=== PATIENT | male | born 1940 | race Caucasian/White ===

== ENCOUNTER 2022-10-22 08:42 | Emergency (ER) | payer OTHER ==
--- OUTSIDE RECORDS SUMMARY | 2022-10-22 08:49 | XMS REPORT | Continuity of Care Document ---
:1940 Author Organization [facility] t Address [address] [facility] [address] [place] [address] Care Team Providers Name Role Phone Angel Sykes MD Primary Care Physician SOLOMON LEYVA Attending Clinician Unavailable Ana Paula Lopez MD Attending Clinician Alexus Hardy Attending Clinician Solomon Leyva MD Attending Clinician Only, Adc Test Attending Clinician Unavailable Doctor Unassigned, [place] Attending Clinician Unavailable Pob, [facility] Lab Main Attending Clinician Unavailable SOLOMON LEYVA Admitting Clinician Unavailable Solomon Leyva MD Admitting Clinician Payers Payer Name Policy Type Policy Number Effective Date Expiration Date S chang [employer] MEDICARE ADV [id number] 2016 00:00:00 Problems Condition Condition Condition Status Onset Resolution Last Treating Co mments Source Name Details Category Date Date Treatment Clinician Date History of History of Disease Active M ethodi coronary coronary 05-08 st artery artery 00:00: Hospita stent stent 00 l placement placement Essential Essential Disease Active Met hodi hypertensi hypertensi 05-07 on on 00:00: Hospita 00 l Hyperlipid Hyperlipid Disease Active 2019- M ethodi emia emia 05-07 00:00: Hospita 00 l DM DM Disease Active Methodi (diabetes (diabetes 05-07 mellitus) mellitus) 00:00: Hosp lizzie 00 l Stented Stented Disease Active [facility] coronary coronary 6-04 st artery artery 00:00: Hospita 00 l Benign Benign Disease Active [facility] localized localized 4-30 st hyperplasi hyperplasi 00:00: Ho spita a of a of 00 l prostate prostate with with urinary urinary obstructio obstructio n n BPH with BPH with Disease Recurre Meth la obstructio obstructio nce 2-25 st n/lower n/lower 00:00: Hospita urinary urinary 00 l tract tract symptoms symptoms Bladder Bladder Disease Recurre Method i stones stones nce 2-25 st 00:00: Hospita 00 l 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 1-24 st ce of ce of 00:00: Hospita urine urine 00 l 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 7-11 st disease disease 00:00: Hospita involving involving 00 l lower brule lower brule heart with heart with angina angina pectoris pectoris Closed Closed Disease Active Method[facility] fracture fracture 5-09 st of shaft of shaft 00:00: Hospit a of right of right 00 l femur femur 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 00:00: Ho spita 00 l 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 5-01 st internal internal 00:00: Hospit a hip 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 l prosthesis prosthesis Hip mass Hip mass Disease Active Metho di 4-20 st 00:00: Hospita 00 l Pain of Pain of Disease Active Method[facility] lumbar lumbar 2-27 st spine spine 00:00: Hospita 00 l Coronary Coronary Disease Active 2015-08 Metho di artery artery 2-01 st disease disease 00:00: Hospita involving involving 00 l lower brule lower brule coronary coronary artery artery without without angina angina pectoris pectoris Benign Benign Problem Active 2022-03-24 Dutch amari prostatic prostatic 21:26:29 l hyperplasi hyperplasi He rmann a a (disorder) (disorder) Active Problem 03/24/2022 [facility] Kidney Kidney Problem Active 2022-03-24 Dutch amari stone stone 21:26:29 l (disorder) (disorder) He rmann Active Problem 03/24/2022 [facility] Group Overactive Problem Active 2022-03-24 M emoria bladder Overactive 21:26:29 l bladder Dema Active Problem 03/24/2022 [facility] Group N20.0 - N20.0 - Diagnosis Active 2021-08-12 Memoria 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 l s to Hard to drug wake up when pt is given morphine. Codeine Propensi Active Nausea Methodi ty to 4-[address] adverse 00:00: vomiting. Hospit a reaction 00 l s to drug Hydrocod Propensi Active Nausea Method i one ty to 4-[address] adverse 00:00: vomiting. Hospit a reaction 00 l s to drug CODEINE DRUG Active N/V [facility]GREDI 2-23 [facility] [place] [facility] MEPERIDI DRUG Active N/V Univers NE HCL INGREDI 2-23 ity of 00:00: [place] [facility] HYDROCOD DRUG Active N/V Univers ONE INGREDI 2-23 ity of 00:00: [place] [facility] MORPHINE DRUG Active N/V Univers INGREDI 2-23 ity of 00:00: [place] [facility] HYDROCOD DRUG Active N/V Univers ONE-ACET 2-23 ity of AMINOPHE 00:00: [place] N 00 [facility] Codeine Propensi Active Nausea Univers ty to and/or 2-23 ity of adverse Vomiting 00:00: [place] reaction 00 [facility] s [facility] Meperidi Propensi Active Nausea Univer s ne Hcl ty to and/or 2-23 ity of adverse Vomiting 00:00: [place] reaction 00 [facility] Hydrocod Propensi Active Nausea Univer s one ty to and/or 2-23 ity of adverse Vomiting 00:00: [place] reaction 00 [facility] Morphine Propensi Active Nausea 2017 Univer s ty to and/or 2-23 ity of adverse Vomiting 00:00: [place] reaction 00 [facility] Hydrocod Propensi Active Nausea 2017 Univer s one-Acet ty to and/or 2- ity of aminophe adverse Vomiting 00:00: [place] n reaction 00 [facility] codeine codeine Active Memoria l Dema morphine morphine Active Memori a l [place] Demerol Demerol Active Memoria l [place] Meperidi Propensi Active Nausea / Meth la ne ty to vomiting st adverse Hospita reaction l s to drug Social History Social Habit Start Date Stop Date Quantity Comments Source History of tobacco Cigarette Smoker [facility] Exposure to Not sure [facility] SARS-CoV-2 (event) [facility] Tobacco use and 2020-11-24 2020-11-24 Never used Univers y of exposure 00:00:00 00:00:00 [facility] Alcohol intake 2019-05-07 2019-05-07 Current drinker Metho dist 00:00:00 00:00:00 of alcohol Hospital (finding) Cigarettes smoked 2017-09-30 2017-09-[address] current (pack per 00:00:00 00:00:00 Hospita l day) - Reported Cigarette 2017-09-30 2017-09-30 [facility] pack-years 00:00:00 00:00:00 Hospital Alcohol Comment 2016-11-29 2016-11-29 [facility] 00:00:00 00:00:00 month Hospital Sex Assigned At [birth year] [facility] 00:00:00 00:[facility]:00 Hospital Smoking Status Start Date Stop Date Source Social History 2021-06-22 15:34:01 2021-06-22 15:34:01 [facility] Never smoker [facility] Medications Ordered Filled Start Stop Current Ordering Indication Dosage Frequency Signature Comments Components Source Medication Medication Date Date Medication? Clinician (SIG) Name Name furosemide 2021-08 Yes TAKE 1 Metho di (LASIX) 40 1-[address] mg tablet 00:00: MOUTH Hospita 00 EVERY DAY l furosemide 2021-08 Yes TAKE 1 Metho di (LASIX) 40 1-[address] mg tablet 00:00: MOUTH Hospita 00 EVERY DAY l furosemide 2021-08 Yes TAKE 1 Metho di (LASIX) 40 1-[address] mg tablet 00:00: MOUTH Hospita 00 EVERY DAY l furosemide 2021-08 Yes TAKE 1 Metho di (LASIX) 40 1-[address] mg tablet 00:00: MOUTH Hospita 00 EVERY DAY l furosemide 2021-08 Yes TAKE 1 Metho di (LASIX) 40 1-[address] mg tablet 00:00: MOUTH Hospita 00 EVERY DAY l furosemide 2021-08 Yes TAKE 1 Metho di (LASIX) 40 1-[address] mg tablet 00:00: MOUTH Hospita 00 EVERY DAY l simvastatin 2021-0 Yes [id number] TAKE 1 Methodi (ZOCOR) 80 9-[address] MG tablet 00:00: MOUTH Hospita 00 EVERY DAY l AT NIGHT simvastatin 2021-0 Yes [id number] TAKE 1 [facility]i (ZOCOR) 80 9-[address] MG tablet 00:00: MOUTH Hospita 00 EVERY DAY l AT NIGHT simvastatin 2021-0 Yes [id number] TAKE 1 [facility] (ZOCOR) 80 9-[address] MG tablet 00:00: MOUTH Hospita 00 EVERY DAY l AT NIGHT simvastatin 2021-0 Yes [id number] TAKE 1 [facility] (ZOCOR) 80 9-[address] MG tablet 00:00: MOUTH Hospita 00 EVERY DAY l AT NIGHT simvastatin 2021-0 Yes [id number] TAKE 1 [facility] (ZOCOR) 80 9-[address] MG tablet 00:00: MOUTH Hospita 00 EVERY DAY l AT NIGHT simvastatin 2021-0 Yes [id number] TAKE 1 [facility] (ZOCOR) 80 9-[address] MG tablet 00:00: MOUTH Hospita 00 EVERY DAY l AT NIGHT metoprolol 2021-0 Yes [id number] TAKE 1 M ethodi tartrate 6-[address] (LOPRESSOR) 00:00: MOUTH Hospi ta 100 mg 00 TWICE A l tablet DAY metoprolol 2021-0 Yes [id number] TAKE 1 M ethodi tartrate 6-[address] (LOPRESSOR) 00:00: MOUTH Hospi ta 100 mg 00 TWICE A l tablet DAY metoprolol 2-0 Yes [id number] TAKE 1 M ethodi tartrate 6-[address] (LOPRESSOR) 00:00: MOUTH Hospi ta 100 mg 00 TWICE A l tablet DAY metoprolol 2022-0 Yes [id number] TAKE 1 M ethodi tartrate 6-[address] (LOPRESSOR) 00:00: MOUTH Hospi ta 100 mg 00 TWICE A l tablet DAY metoprolol 2022-0 Yes [id number] TAKE 1 M ethodi tartrate 6-[address] (LOPRESSOR) 00:00: MOUTH Hospi ta 100 mg 00 TWICE A l tablet DAY metoprolol 2-0 Yes [id number] TAKE 1 M ethodi tartrate 6-[address] (LOPRESSOR) 00:00: MOUTH Hospi ta 100 mg 00 TWICE A l tablet DAY lisinopriL- 2022-0 Yes TAKE 1 Meth la hydrochloro 5-[address] thiazide 00:00: MOUTH Hospita (PRINZIDE) 00 EVERY DAY l 10-12.5 mg per tablet lisinopriL- 2022-0 Yes TAKE 1 Meth la hydrochloro 5-[address] thiazide 00:00: MOUTH Hospita (PRINZIDE) 00 EVERY DAY l 10-12.5 mg per tablet lisinopriL- 2022-0 Yes TAKE 1 Meth la hydrochloro 5-[address] thiazide 00:00: MOUTH Hospita (PRINZIDE) 00 EVERY DAY l 10-12.5 mg per tablet lisinopriL- 2022-0 Yes TAKE 1 Meth la hydrochloro 5-[address] thiazide 00:00: MOUTH Hospita (PRINZIDE) 00 EVERY DAY l 10-12.5 mg per tablet lisinopriL- 2022-0 Yes TAKE 1 Meth la hydrochloro 5-[address] thiazide 00:00: MOUTH Hospita (PRINZIDE) 00 EVERY DAY l 10-12.5 mg per tablet lisinopriL- 2022-0 Yes TAKE 1 Meth la hydrochloro 5-[address] thiazide 00:00: MOUTH Hospita (PRINZIDE) 00 EVERY DAY l 10-12.5 mg per tablet Myrbetriq 2-0 Yes 50 mg = 1 Mem oria 50 mg oral 4-11 tab, PO, l tablet, 21:02: Daily, # He n extended 00 30 tab, 3 release Refill(s), Pharmacy: [facility] #[id number], 180.34, cm, 09/28/21 9:05:00 SAMPLER PICKUP, Height, 127.273, kg, 09/28/21 9:05:00 SAMPLER PICKUP, Weight Myrbetriq 2022-0 Yes 50 mg = 1 Mem oria 50 mg oral 4-11 tab, PO, l tablet, 21:02: Daily, # He n extended 00 30 tab, 3 release Refill(s), Pharmacy: [facility] #[id number], 180.34, cm, 09/28/21 9:05:00 SAMPLER PICKUP, Height, 127.273, kg, 09/28/21 9:05:00 SAMPLER PICKUP, Weight Myrbetriq 2022-0 Yes 50 mg = 1 Mem oria 50 mg oral 4-11 tab, PO, l tablet, 21:02: Daily, # He n extended 00 30 tab, 3 release Refill(s), Pharmacy: [facility] #[id number], 180.34, cm, 09/28/21 9:05:00 SAMPLER PICKUP, Height, 127.273, kg, 09/28/21 9:05:00 SAMPLER PICKUP, Weight Myrbetriq 2022-0 Yes 50 mg = 1 Mem oria 50 mg oral 4-11 tab, PO, l tablet, 21:02: Daily, # He n extended 00 30 tab, 3 release Refill(s), Pharmacy: [facility] #[id number], 180.34, cm, 09/28/21 9:05:00 SAMPLER PICKUP, Height, 127.273, kg, 09/28/21 9:05:00 SAMPLER PICKUP, Weight Myrbetriq 2022-0 Yes 50 mg = 1 Mem oria 50 mg oral 4-11 tab, PO, l tablet, 21:02: Daily, # He n extended 00 30 tab, 3 release Refill(s), Pharmacy: [facility] #[id number], 180.34, cm, 09/28/21 9:05:00 SAMPLER PICKUP, Height, 127.273, kg, 09/28/21 9:05:00 SAMPLER PICKUP, Weight Myrbetriq 2022-0 Yes 50 mg = 1 Mem oria 50 mg oral 4-11 tab, PO, l tablet, 21:02: Daily, # He n extended 00 30 tab, 3 release Refill(s), Pharmacy: [facility] #[id number], 180.34, cm, 09/28/21 9:05:00 SAMPLER PICKUP, Height, 127.273, kg, 09/28/21 9:05:00 SAMPLER PICKUP, Weight furosemide 2021- No TAKE 1 Meth la (LASIX) 40 11-[address] mg tablet 00:00: 00:00 MOUTH Hospit a 00 :00 EVERY DAY l furosemide 2021- No TAKE 1 Meth la (LASIX) 40 11-[address] mg tablet 00:00: 00:00 MOUTH Hospit a 00 :00 EVERY DAY l furosemide 2021- No TAKE 1 Meth la (LASIX) 40 11-[address] mg tablet 00:00: 00:00 MOUTH Hospit a 00 :00 EVERY DAY l furosemide 2021- No TAKE 1 Meth la (LASIX) 40 11-[address] mg tablet 00:00: 00:00 MOUTH Hospit a 00 :00 EVERY DAY l furosemide 2021- No TAKE 1 Meth la (LASIX) 40 11-02- TABLET BY st mg tablet 00:00: 00:00 MOUTH Hospit a 00 :00 EVERY DAY l furosemide 2021- No TAKE 1 Meth la (LASIX) 40 11-[address] mg tablet 00:00: 00:00 MOUTH Hospit a 00 :00 EVERY DAY l simvastatin 2021-0 2021- No [id number] TAKE 1 [facility]i (ZOCOR) 80 11-[address] MG tablet 00:00: 00:00 MOUTH Hospit a 00 :00 EVERY DAY l AT NIGHT simvastatin 2021-0 2021- No [id number] TAKE 1 [facility] (ZOCOR) 80 11-[address] MG tablet 00:00: 00:00 MOUTH Hospit a 00 :00 EVERY DAY l AT NIGHT simvastatin 2021-0 2021- No [id number] TAKE 1 [facility] (ZOCOR) 80 3-05-[address] MG tablet 00:00: 00:00 MOUTH Hospit a 00 :00 EVERY DAY l AT NIGHT simvastatin 2021-0 2021- No [id number] TAKE 1 [facility]i (ZOCOR) 80 -05 05- TABLET BY st MG tablet 00:00: 00:00 MOUTH Hospit a 00 :00 EVERY DAY l AT NIGHT simvastatin 2021-0 2021- No [id number] TAKE 1 [facility]i (ZOCOR) 80 11-[address] MG tablet 00:00: 00:00 MOUTH Hospit a 00 :00 EVERY DAY l AT NIGHT simvastatin 2021-0 2021- No [id number] TAKE 1 [facility] (ZOCOR) 80 11-02- TABLET BY st MG tablet 00:00: 00:00 MOUTH Hospit a 00 :00 EVERY DAY l AT NIGHT 24 HR 2020-08 Yes 25 mg = 1 Memoria mirabegron 2-28 tab, PO, l 25 MG 22:52: Daily, # Ravin Extended 00 90 tab, 5 Release Refill(s), Tablet Pharmacy: [Myr[facility]riq] [id number], 180.34, cm, 08/11/21 14:24:00 SAMPLER PICKUP, Height, 127.273, kg, 08/11/21 14:24:00 SAMPLER PICKUP, Weight 24 HR 2020-08 Yes 25 mg = 1 Memoria mirabegron 2-28 tab, PO, l 25 MG 22:52: Daily, # Dema Extended 00 90 tab, 5 Release Refill(s), Tablet Pharmacy: [Myrbetriq] [id number], 180.34, cm, 08/11/21 14:24:00 SAMPLER PICKUP, Height, 127.273, kg, 08/11/21 14:24:00 SAMPLER PICKUP, Weight 24 HR 2020-08 Yes 25 mg = 1 Memoria mirabegron 2-28 tab, PO, l 25 MG 22:52: Daily, # Ravin Extended 00 90 tab, 5 Release Refill(s), Tablet Pharmacy: [Myrbetriq] [id number], 180.34, cm, 08/11/21 14:24:00 SAMPLER PICKUP, Height, 127.273, kg, 08/11/21 14:24:00 SAMPLER PICKUP, Weight 24 HR 2020-08 Yes 25 mg = 1 Memoria mirabegron 2-28 tab, PO, l 25 MG 22:52: Daily, # Ravin Extended 00 90 tab, 5 Release Refill(s), Tablet Pharmacy: [Myrbetriq] [id number], 180.34, cm, 08/11/21 14:24:00 SAMPLER PICKUP, Height, 127.273, kg, 08/11/21 14:24:00 SAMPLER PICKUP, Weight 24 HR 2020-08 Yes 25 mg = 1 Memoria mirabegron 2-28 tab, PO, l 25 MG 22:52: Daily, # Ravin Extended 00 90 tab, 5 Release Refill(s), Tablet Pharmacy: [Myrbetriq] [id number], 180.34, cm, 08/11/21 14:24:00 SAMPLER PICKUP, Height, 127.273, kg, 08/11/21 14:24:00 SAMPLER PICKUP, Weight 24 HR 2020-08 Yes 25 mg = 1 Memoria mirabegron 2-28 tab, PO, l 25 MG 22:52: Daily, # Ravin Extended 00 90 tab, 5 Release Refill(s), Tablet Pharmacy: [Myrbetriq] [id number], 180.34, cm, 08/11/21 14:24:00 SAMPLER PICKUP, Height, 127.273, kg, 08/11/21 14:24:00 SAMPLER PICKUP, Weight furosemide 2020-08- No TAKE 1 Meth la (LASIX) 40 09-[address] mg tablet 00:00: 00:00 MOUTH Hospit a 00 :00 EVERY DAY l furosemide 2020-08- No TAKE 1 Meth la (LASIX) 40 09-17- TABLET BY st mg tablet 00:00: 00:00 MOUTH Hospit a 00 :00 EVERY DAY l furosemide 2020-08- No TAKE 1 Meth la (LASIX) 40 09-17- TABLET BY st mg tablet 00:00: 00:00 MOUTH Hospit a 00 :00 EVERY DAY l furosemide 2020-08- No TAKE 1 Meth la (LASIX) 40 09-17- TABLET BY st mg tablet 00:00: 00:00 MOUTH Hospit a 00 :00 EVERY DAY l furosemide 2020-08- No TAKE 1 Meth la (LASIX) 40 2-03 -[address] mg tablet 00:00: 00:00 MOUTH Hospit a 00 :00 EVERY DAY l furosemide 2020-08- No TAKE 1 Meth la (LASIX) 40 2-03 03-[address] mg tablet 00:00: 00:00 MOUTH Hospit a 00 :00 EVERY DAY l Ciprofloxac 2020-08 Yes 500 mg = 1 Memoria in 500 MG 1-12 tab, PO, l Oral Tablet 18:23: Q12H, Nilam nn [Cipro] 00 please let patient know when ready to shredder picker and stop other antibotic. , X 10 day, # 20 tab, 0 Refill(s), Pharmacy: [facility] #[id number] Ciprofloxac 2020-08 Yes 500 mg = 1 Memoria in 500 MG 1-12 tab, PO, l Oral Tablet 18:23: Q12H, Nilam nn [Cipro] 00 please let patient know when ready to shredder picker and stop other antibotic. , X 10 day, # 20 tab, 0 Refill(s), Pharmacy: [id number] Ciprofloxac 2020-08 Yes 500 mg = 1 Memoria in 500 MG 1-12 tab, PO, l Oral Tablet 18:23: Q12H, Nilam nn [Cipro] 00 please let patient know when ready to shredder picker and stop other antibotic. , X 10 day, # 20 tab, 0 Refill(s), Pharmacy: [id number] Ciprofloxac 2020-08 Yes 500 mg = 1 Memoria in 500 MG 1-12 tab, PO, l Oral Tablet 18:23: Q12H, Nilam nn [Cipro] 00 please let patient know when ready to shredder picker and stop other antibotic. , X 10 day, # 20 tab, 0 Refill(s), Pharmacy: [id number] Ciprofloxac 2020-08 Yes 500 mg = 1 Memoria in 500 MG 1-12 tab, PO, l Oral Tablet 18:23: Q12H, Nilam nn [Cipro] 00 please let patient know when ready to shredder picker and stop other antibotic. , X 10 day, # 20 tab, 0 Refill(s), [id number] Ciprofloxac 2020-08 Yes 500 mg = 1 Memoria in 500 MG 1-12 tab, PO, l Oral Tablet 18:23: Q12H, Nilam nn [Cipro] 00 please let patient know when ready to shredder picker and stop other antibotic. , X 10 day, # 20 tab, 0 Refill(s), Pharmacy: [facility] #[id number] Nitrofurant 2020-08 Yes 100 mg = 1 Memoria oin 100 MG 1-11 cap, PO, l Oral 14:54: BID, X 10 Dema Capsule 00 day, # 20 [Macrobid] cap, 0 Refill(s), Pharmacy: [facility] #[id number] Nitrofurant 2020-08 Yes 100 mg = 1 Memoria oin 100 MG 1-11 cap, PO, l Oral 14:54: BID, X 10 Dema Capsule 00 day, # 20 [Macrobid] cap, 0 Refill(s), Pharmacy: [facility] #[id number] Nitrofurant 2020-08 Yes 100 mg = 1 Memoria oin 100 MG 1-11 cap, PO, l Oral 14:54: BID, X 10 Dema Capsule 00 day, # 20 [Macrobid] cap, 0 Refill(s), Pharmacy: [facility] #[id number] Nitrofurant 2020-08 Yes 100 mg = 1 Memoria oin 100 MG 1-11 cap, PO, l Oral 14:54: BID, X 10 Dema Capsule 00 day, # 20 [Macrobid] cap, 0 Refill(s), Pharmacy: [facility] #[id number] Nitrofurant 2020-08 Yes 100 mg = 1 Memoria oin 100 MG 1-11 cap, PO, l Oral 14:54: BID, X 10 Dema Capsule 00 day, # 20 [Macrobid] cap, 0 Refill(s), Pharmacy: [facility] #[id number] Nitrofurant 2020-08 Yes 100 mg = 1 Memoria oin 100 MG 1-11 cap, PO, l Oral 14:54: BID, X 10 Dema Capsule 00 day, # 20 [Macrobid] cap, 0 Refill(s), Pharmacy: [facility] #[id number] Aspirin 2020-08 Yes 81 mg = 1 Me moria MG Enteric 1-08 tab, PO, l Coated 15:31: Daily, # Ravin Tablet 00 90 tab, 3 Refill(s) Aspirin 81 2020-08 Yes 81 mg = 1 Me moria MG Enteric 1-08 tab, PO, l Coated 15:31: Daily, # Ravin Tablet 00 90 tab, 3 Refill(s) Aspirin 81 2020-08 Yes 81 mg = 1 Me moria MG Enteric 1-08 tab, PO, l Coated 15:31: Daily, # Dema Tablet 00 90 tab, 3 Refill(s) Aspirin 81 2020-08 Yes 81 mg = 1 Me moria MG Enteric 1-08 tab, PO, l Coated 15:31: Daily, # Dema Tablet 00 90 tab, 3 Refill(s) Aspirin 81 2020-08 Yes 81 mg = 1 Me moria MG Enteric 1-08 tab, PO, l Coated 15:31: Daily, # Ravin Tablet 00 90 tab, 3 Refill(s) Aspirin 2020-08 Yes 81 mg = 1 Me moria MG Enteric 1-08 tab, PO, l Coated 15:31: Daily, # Dema Tablet 00 90 tab, 3 Refill(s) albuterol 2020-08 Yes 0 Memoria 90 mcg/inh -08 Refill(s) l inhalation 15:30: Dema aerosol 00 simvastatin 2020-08 Yes 0 Memori a 80 mg oral 108 Refill(s) l tablet 15:30: Ravin 00 Metoprolol 2020-08 Yes 100 mg = 1 M emoria Tartrate 1-08 tab, PO, l 100 mg oral 15:30: BID, # 60 H ermann tablet 00 tab, 0 Refill(s) albuterol 2020-08 Yes 0 Memoria 90 mcg/inh 08 Refill(s) l inhalation 15:30: Ravin aerosol 00 simvastatin 2020-08 Yes 0 Memori a 80 mg oral 1-08 Refill(s) l tablet 15:30: Ravin 00 Metoprolol 2020-08 Yes 100 mg = 1 M emoria Tartrate 1-08 tab, PO, l 100 mg oral 15:30: BID, # 60 H ermann tablet 00 tab, 0 Refill(s) albuterol 2020-08 Yes 0 Memoria 90 mcg/inh 1-08 Refill(s) l inhalation 15:30: Ravin aerosol simvastatin 2020-08 Yes 0 Memori a 80 mg oral 1-08 Refill(s) l tablet 15:30: Metoprolol 2020-08 Yes 100 mg = 1 M emoria Tartrate 1-08 tab, PO, l 100 mg oral 15:30: BID, # 60 H ermann tablet 00 tab, 0 Refill(s) albuterol 2020-08 Yes 0 Memoria 90 mcg/inh 1-08 Refill(s) l inhalation 15:30: Ravin aerosol simvastatin 2020-08 Yes 0 Memori a 80 mg oral 1-08 Refill(s) l tablet 15:30: Metoprolol 2020-08 Yes 100 mg = 1 M emoria Tartrate 1-08 tab, PO, l 100 mg oral 15:30: BID, # 60 H ermann tablet 00 tab, 0 Refill(s) albuterol 2020-08 Yes 0 Memoria 90 mcg/inh 1-08 Refill(s) l inhalation 15:30: Dema aerosol simvastatin 2020-08 Yes 0 Memori a 80 mg oral 1-08 Refill(s) l tablet 15:30: Metoprolol 2020-08 Yes 100 mg = 1 M emoria Tartrate 1-08 tab, PO, l 100 mg oral 15:30: BID, # 60 H ermann tablet 00 tab, 0 Refill(s) albuterol 2020-08 Yes 0 Memoria 90 mcg/inh 1-08 Refill(s) l inhalation 15:30: Ravin aerosol simvastatin 2020-08 Yes 0 Memori a 80 mg oral 1-08 Refill(s) l tablet 15:30: Metoprolol 2020-08 Yes 100 mg = 1 M emoria Tartrate 1-08 tab, PO, l 100 mg oral 15:30: BID, # 60 H ermann tablet 00 tab, 0 Refill(s) Hydrochloro 2020-08 Yes 0 Memori a thiazide 1-08 Refill(s) l 12.5 MG / 15:29: Ravin Lisinopril 00 10 MG Oral Tablet finasteride 2020-08 Yes 0 Memori a 5 mg oral 1-08 Refill(s) l tablet 15:29: Furosemide 2020-08 Yes 0 Memoria 40 MG Oral 1-08 Refill(s) l Tablet 15:29: Hydrochloro 2020-08 Yes 0 Memori a thiazide 1-08 Refill(s) l 12.5 MG / 15:29: Lisinopril 00 10 MG Oral Tablet finasteride 2020-08 Yes 0 Memori a 5 mg oral 1-08 Refill(s) l tablet 15:29: Furosemide 2020-08 Yes 0 Memoria 40 MG Oral 1-08 Refill(s) l Tablet 15:29: Hydrochloro 2020-08 Yes 0 Memori a thiazide 1-08 Refill(s) l 12.5 MG / 15:29: Lisinopril 00 10 MG Oral Tablet finasteride 2020-08 Yes 0 Memori a 5 mg oral 1-08 Refill(s) l tablet 15:29: Furosemide 2020-08 Yes 0 Memoria 40 MG Oral 1-08 Refill(s) l Tablet 15:29: Hydrochloro 2020-08 Yes 0 Memori a thiazide 1-08 Refill(s) l 12.5 MG / 15:29: Lisinopril 00 10 MG Oral Tablet finasteride 2020-08 Yes 0 Memori a 5 mg oral 1-08 Refill(s) l tablet 15:29: Furosemide 2020-08 Yes 0 Memoria 40 MG Oral 1-08 Refill(s) l Tablet 15:29: Hydrochloro 2020-08 Yes 0 Memori a thiazide 1-08 Refill(s) l 12.5 MG / 15:29: Lisinopril 00 10 MG Oral Tablet finasteride 2020-08 Yes 0 Memori a 5 mg oral 1-08 Refill(s) l tablet 15:29: Furosemide 2020-08 Yes 0 Memoria 40 MG Oral 1-08 Refill(s) l Tablet 15:29: Hydrochloro 2020-08 Yes 0 Memori a thiazide 1-08 Refill(s) l 12.5 MG / 15:29: Lisinopril 00 10 MG Oral Tablet finasteride 2020-08 Yes 0 Memori a 5 mg oral 1-08 Refill(s) l tablet 15:29: 00 Furosemide 2020-08 Yes 0 Memoria 40 MG Oral 1-08 Refill(s) l Tablet 15:29: Dema 00 simvastatin 2020-08- No [id number] 80mg QD Take 1 Methodi (ZOCOR) 80 0-05 03-21 tablet (80 st MG tablet 00:00: 00:00 mg total) Ho spita 00 :00 by mouth l nightly. simvastatin 2020-08- No [id number] 80mg QD Take 1 [facility] (ZOCOR) 80 0-05 03-21 tablet (80 st MG tablet 00:00: 00:00 mg total) Ho spita 00 :00 by mouth l nightly. simvastatin 2020-08- No [id number] 80mg QD Take 1 [facility] (ZOCOR) 80 0-05 03-21 tablet (80 st MG tablet 00:00: 00:00 mg total) Ho spita 00 :00 by mouth l nightly. simvastatin 2020-08- No [id number] 80mg QD Take 1 [facility] ([facility]) 80 0-05 03-21 tablet (80 st MG tablet 00:00: 00:00 mg total) [facility] 00 :00 by mouth l nightly. simvastatin 2020-08- No [id number] 80mg QD Take 1 [facility] ([facility]) 80 0-05 03-21 tablet (80 st MG tablet 00:00: 00:00 mg total) [facility] 00 :00 by mouth l nightly. simvastatin 2020-08- No [id number] 80mg QD Take 1 [facility] ([facility]) 80 0-05 03-21 tablet (80 st MG tablet 00:00: 00:00 mg total) [facility] 00 :00 by mouth l nightly. metoprolol 2021- No [id number] TAKE 1 [facility] tartrate 6-28 06-[address] ([facility]) 00:00: 00:00 [facility] 100 mg 00 :00 TWICE A l tablet DAY metoprolol 2021- No [id number] TAKE 1 [facility] tartrate 02-09- TABLET BY st (LOPRESSOR) 00:00: 00:00 MOUTH [facility] lizzie 100 mg 00 :00 TWICE A l tablet DAY metoprolol 0 2021- No [id number] TAKE 1 [facility] tartrate 02-09- TABLET BY st (LOPRESSOR) 00:00: 00:00 MOUTH [facility] 100 mg 00 :00 TWICE A l tablet DAY metoprolol 0 2- No [id number] TAKE 1 [facility] tartrate 02-[address] (LOPRESSOR) 00:00: 00:00 MOUTH [facility] 100 mg 00 :00 TWICE A l tablet DAY metoprolol 0 2021- No [id number] TAKE 1 [facility] tartrate 02-[address] (LOPRESSOR) 00:00: 00:00 MOUTH [facility] 100 mg 00 :00 TWICE A l tablet DAY metoprolol 0 2021- No [id number] TAKE 1 [facility] tartrate 02-[address] (LOPRESSOR) 00:00: 00:00 MOUTH [facility]osp [facility] 100 mg 00 :00 TWICE A l tablet DAY Klor-Con 10 2020-0 Yes TAKE 1 Meth la 10 mEq CR 6-[address] tablet 00:00: MOUTH Hospita 00 EVERY DAY l Klor-Con 10 2020-0 Yes TAKE 1 Meth la 10 mEq CR 6-[address] tablet 00:00: MOUTH Hospita 00 EVERY DAY l Klor-Con 10 2020-0 Yes TAKE 1 Meth la 10 mEq CR 6-[address] tablet 00:00: MOUTH [facility]ospita 00 EVERY DAY l Klor-Con 10 2020-0 Yes TAKE 1 Meth la 10 mEq CR 6-[address] tablet 00:00: MOUTH [facility]ospita 00 EVERY DAY l Klor-Con 10 2020-0 Yes TAKE 1 Meth la 10 mEq CR 6-[address] tablet 00:00: MOUTH [facility]ospita 00 EVERY DAY l Klor-Con 10 2020-0 Yes TAKE 1 Meth la 10 mEq CR 6-[address] tablet 00:00: MOUTH [facility]ospita 00 EVERY DAY l lisinopriL- 2020-0 2- No TAKE 1 Met [facility] hydrochloro 5-07 05-[address] thiazide 00:00: 00:00 MOUTH Hospita (PRINZIDE) 00 :00 EVERY DAY l 10-12.5 mg per tablet lisinopriL- 2020-0 2- No TAKE 1 Met hodi hydrochloro 5-07 05-[address] thiazide 00:00: 00:00 MOUTH Hospita (PRINZIDE) 00 :00 EVERY DAY l 10-12.5 mg per tablet lisinopriL- 2020-0 2022- No TAKE 1 Met hodi hydrochloro 5-07 05-[address] thiazide 00:00: 00:00 MOUTH Hospita (PRINZIDE) 00 :00 EVERY DAY l 10-12.5 mg per tablet lisinopriL- 2020-0 2- No TAKE 1 Met hodi hydrochloro 5-07 05-[address] thiazide 00:00: 00:00 MOUTH Hospita (PRINZIDE) 00 :00 EVERY DAY l 10-12.5 mg per tablet lisinopriL- 2020-0 2- No TAKE 1 Met hodi hydrochloro 5-07 05-[address] thiazide 00:00: 00:00 MOUTH Hospita (PRINZIDE) 00 :00 EVERY DAY l 10-12.5 mg per tablet lisinopriL- 2020-0 2- No TAKE 1 Met hodi hydrochloro 5-07 05-[address] thiazide 00:00: 00:00 MOUTH Hospita (PRINZIDE) 00 :00 EVERY DAY l 10-12.5 mg per tablet methocarbam 2020-0 Yes 750mg Take 750 U nivers ol 750 mg 4-14 mg by ity of tablet 13:59: mouth 4 [place] 05 (four) Medical times Branch daily. ibuprofen 2020-0 Yes 800mg Take 800 Uni vers 800 mg 4-14 mg by ity of tablet 13:59: mouth [place] 05 every 6 Medical (six) Branch hours as needed. traMADOL 50 2020-0 Yes 50mg Take 50 mg Univers mg tablet 4-14 by mouth ity of 13:59: every 6 [place] 05 (six) Medical hours as Branch needed. metFORMIN 2020-0 Yes 500mg Take 500 Uni vers 500 mg 4-14 mg by ity of tablet 13:59: mouth 2 [place] 05 (two) Medical times Branch daily with meals. methocarbam 0 Yes 750mg Take 750 U nivers ol 750 mg 4-14 mg by ity of tablet 13:59: mouth 4 [place] 05 (four) Medical times Branch daily. ibuprofen 0 Yes 800mg Take 800 Uni vers 800 mg 4-14 mg by ity of tablet 13:59: mouth [place] 05 every 6 Medical (six) Branch hours as needed. traMADOL 50 0 Yes 50mg Take 50 mg Univers mg tablet 4-14 by mouth ity of 13:59: every 6 [place] [address] (six) Medical hours as Branch needed. metFORMIN 0 Yes 500mg Take 500 Uni vers 500 mg 4-14 mg by ity of tablet 13:59: mouth 2 [place] 05 (two) Medical times Branch daily with meals. simvastatin 0 Yes 40mg Take 40 mg Univers 40 mg 4-14 by mouth ity of tablet 13:59: at [place] 04 bedtime. Medical Branch metoprolol 0 Yes 100mg Take 100 Un shanelle tartrate 4-14 mg by ity of 100 mg 13:59: mouth 2 [place] tablet 04 (two) Medical times Branch daily. pantoprazol Yes 40mg Take 40 mg Univers e 40 mg EC 4-14 by mouth ity o f tablet 13:59: daily. [place] [address] Medical Branch clopidogrel 0 Yes 75mg Take 75 mg Univers 75 mg 4-14 by mouth ity of tablet 13:59: daily. [place] [address] Medical [place] lisinopril- Yes 1{tbl} Take 1 Un shanelle hydrochloro 4-14 tablet by ity of thiazide 13:59: mouth [place] 20-25 mg 04 daily. Medical per tablet Branch aspirin 81 0 Yes 81mg Take 81 mg U nivers mg chewable 4-14 by mouth ity of tablet 13:59: daily. [place] [address] Medical [place] finasteride 0 Yes 5mg Take 5 mg U nivers 5 mg tablet 4-14 by mouth ity of 13:59: daily. [place] [address] Medical [place] tamsulosin 0 Yes Take by Univ ers 0.4 mg 24 4-14 mouth ity of hr capsule 13:59: daily. [place] [address] Medical [place] simvastatin 0 Yes 40mg Take 40 mg Univers 40 mg 4-14 by mouth ity of tablet 13:59: at [place] [address] bedtime. Medical Branch metoprolol Yes 100mg Take 100 Un shaenlle tartrate 4-14 mg by ity of 100 mg 13:59: mouth 2 [place] tablet 04 (two) Medical times [place] daily. pantoprazol Yes 40mg Take 40 mg Univers e 40 mg EC 4-14 by mouth ity o f tablet 13:59: daily. [address] clopidogrel Yes 75mg Take 75 mg Univers 75 mg 4-14 by mouth ity of tablet 13:59: daily. [address] lisinopril- Yes 1{tbl} Take 1 Un shanelle hydrochloro 4-14 tablet by ity of thiazide 13:59: mouth [place] 20-25 mg 04 daily. Medical per tablet Branch aspirin 81 Yes 81mg Take 81 mg U nivers mg chewable 4-14 by mouth ity of tablet 13:59: daily. [address] finasteride Yes 5mg Take 5 mg U nivers 5 mg tablet 4-14 by mouth ity of 13:59: daily. [address] tamsulosin Yes Take by Univ ers 0.4 mg 24 4-14 mouth ity of hr capsule 13:59: daily. [address] neomycin-po 0 Yes PRN, Univer s lymyxin-dex 4-14 Starting ity of amethasone 13:17: Tue [place] (MAXITROL) 11/26/20 at Med ical 3.[address] [place] [address] mg/g-10,000 Until unit/g-0.1 Discontinu % ed, ophthalmic Routine, ointment Intra-op Hyaluronida Yes PRN, Univer s se, Human 4-14 Starting ity of Recomb. 13:17: Wed [place] (HYLENEX) 11/26/20 at Medi jaret injection [address] [place] [address] Until Discontinu ed, Routine, Intra-op eye block 0 Yes PRN, Univers syringe 11 4-14 Starting ity o f mL 13:17: Wed [place] 11/26/[address] Until Discontinu ed, Intra-op neomycin-po 2020- No PRN, Unive rs lymyxin-dex 4-14 04-14 Starting ity of amethasone 13:17: 15:59 Wed [place] (MAXITROL) 00 :05 11/26/20 at Med ical 3.5 0817, Branch mg/g-10,000 Until Tue unit/g-0.1 11/26/20 at % 1059, ophthalmic Routine, ointment Intra-op Hyaluronida 2020- No PRN, Unive rs se, Human 11-26 Starting ity o f Recomb. 13:17: 15:59 Wed [place] (HYLENEX) 00 :05 11/26/20 at Medi jaret injection 0817, Branch Until Tue11/26/20 at 1059, Routine, Intra-op eye block 2020- No PRN, Univers syringe 11 11-26 Starting ity of mL 13:17: 15:59 Wed [place] 00 :05 11/26/20 at [facility] 0817, Branch Until Tue11/26/20 at 1059, Intra-op EPINEPHrine Yes PRN, Univer s 1:1,000 (1 11-26 Starting ity o f mg/mL) 13:16: Wed [place] (ADRENALIN) 00 11/26/20 at Vt dical injection 0816, Branch Until Discontinu ed, Routine, Intra-op DUOVISC Yes PRN, Univers (DUOVISC 11-26 Starting ity of VISCO 13:16: Wed [place] ELASTIC) 3 00 11/26/20 at Med ical %-4 %(0.5 0816, Branch mL) 1 % Until (0.55 mL) Discontinu intraocular ed, injection Routine, Intra-op dexamethaso Yes PRN, Univer s ne 11-26 Starting ity of (DECADRON 13:16: Wed [place] PHOSPHATE) 00 11/26/20 at Med ical injection 0816, Branch Until Discontinu ed, Routine, Intra-op ceFAZolin Yes PRN, Univers (ANCEF) 11-26 Starting ity of injection 13:16: Wed [place] 00 11/26/20 at [facility] 08, Branch Until Discontinu ed, FUENTES, Intra-op EPINEPHrine 2020- No PRN, Unive rs 1:1,000 (1 11-26 Starting ity of mg/mL) 13:16: 15:59 Wed [place] (ADRENALIN) 00 :05 11/26/20 at Vt dical injection 0816, Branch Until Tue11/26/20 at 1059, Routine, Intra-op DUOVISC 2020- No PRN, Univers (DUOVISC 11-26 Starting ity of VISCO 13:16: 15:59 Wed [place] ELASTIC) 3 00 :05 11/26/20 at [facility] %-4 %(0.5 0816, Branch mL) 1 % Until Wed (0.55 mL) 11/26/20 at intraocular 1059, injection Routine, Intra-op dexamethaso 2020- No PRN, Unive rs ne 11-26 Starting ity of (DECADRON 13:16: 15:59 Wed [place] PHOSPHATE) 00 :05 11/26/[address] [facility] ical injection 0816, Branch Until Tue11/26/20 at 1059, Routine, Intra-op ceFAZolin 2020- No PRN, Univers (ANCEF) 11-26 Starting ity of injection 13:16: 15:59 Wed [place] 00 :05 11/26/20 at [facility] 0816, Branch Until Tue11/26/20 at 1059, FUENTES, Intra-op balanced Yes PRN, Univers salt irrig 11-26 Starting ity o f soln comb1 13:15: Wed [place] (BSS PLUS) 00 11/26/[address] [facility] ical ophthalmic 0815, Branch solution Until 500 mL bag Discontinu ed, Routine, Intra-op balanced 2020- No PRN, Univers salt irrig 11-26 Starting ity of soln comb1 13:15: 15:59 Wed [place] (BSS PLUS) 00 :05 11/26/[address] [facility] ical ophthalmic 0815, Branch solution Until Wed 500 mL bag 11/26/20 at 1059, Routine, Intra-op mydriatic 2020- No .5mL 0.5 mL, Univ ers #5 11-26 Left Eye, ity of ophthalmic 11:45: 11:51 ONCE, 1 Bigg as solution 00 :00 dose, Wed Medica l 0.5 mL 11/26/20 at Branch syringe 0645, Routine, DSU Pre-op lactated 2020- No 1000mL at 42 Unive rs ringers IV 11-26 04-14 mL/hr, ity of infusion 11:45: 11:55 1,000 mL, Bigg as 1,000 mL 00 :00 IV Medical Infusion, Branch ONCE, 1 dose, 11/26/20 at 0645, Routine, DSU Pre-op mydriatic 2020- No .5mL 0.5 mL, Univ ers #5 11-26 Left Eye, ity of ophthalmic 11:45: 11:51 ONCE, 1 Bigg as solution 00 :00 dose, Wed Medica l 0.5 mL 11/26/20 at Branch syringe 0645, Routine, DSU Pre-op lactated 2020- No 1000mL at 42 Unive rs ringers IV 11-26-14 mL/hr, ity of infusion 11:45: 11:55 1,000 mL, Bigg as 1,000 mL 00 :00 IV Medical Infusion, Branch ONCE, 1 dose, 11/26/20 at 0645, Routine, DSU Pre-op lisinopril- Yes 1{tbl} Take 1 Un shanelle hydrochloro 3-24 tablet by ity of thiazide 15:59: mouth [place] 20-25 mg 13 daily. Medical per tablet [place] aspirin 81 Yes 81mg Take 81 mg U nivers mg chewable 3-24 by mouth ity of tablet 15:59: daily. [address] finasteride 0 Yes 5mg Take 5 mg U nivers 5 mg tablet 3-24 by mouth ity of 15:59: daily. [address] tamsulosin Yes Take by [facility] ers 0.4 mg 24 3-24 mouth ity of hr capsule 15:59: daily. [address] methocarbam 0 Yes 750mg Take 750 U nivers ol 750 mg 3-24 mg by ity of tablet 15:59: mouth 4 [place] 13 (four) Medical times [place] daily. ibuprofen Yes 800mg Take 800 Uni vers 800 mg 3-24 mg by ity of tablet 15:59: mouth [place] [address] every 6 Medical (six) Branch hours as needed. traMADOL 50 0 Yes 50mg Take 50 mg Univers mg tablet 3-24 by mouth ity of 15:59: every 6 [place] [address] (six) Medical hours as Branch needed. metFORMIN 0 Yes 500mg Take 500 Uni vers 500 mg 3-24 mg by ity of tablet 15:59: mouth 2 [place] [address] (two) Medical times Branch daily with meals. simvastatin 0 Yes 40mg Take 40 mg Univers 40 mg 3-24 by mouth ity of tablet 15:59: at [place] [address] bedtime. Medical Branch metoprolol 0 Yes 100mg Take 100 Un shanelle tartrate 3-24 mg by ity of 100 mg 15:59: mouth 2 [place] [address] (two) Medical times [place] daily. pantoprazol Yes 40mg Take 40 mg Univers e 40 mg EC 3-24 by mouth ity o f tablet 15:59: daily. [address] Branch clopidogrel 0 Yes 75mg Take 75 mg Univers 75 mg 3-24 by mouth ity of tablet 15:59: daily. [place] [address] Medical Branch lisinopril- 0 Yes 1{tbl} Take 1 Un shanelle hydrochloro 3-24 tablet by ity of thiazide 15:59: mouth [place] 20-25 mg 13 daily. Medical per tablet Branch aspirin 81 0 Yes 81mg Take 81 mg U nivers mg chewable 3-24 by mouth ity of tablet 15:59: daily. [address] Branch finasteride 0 Yes 5mg Take 5 mg U nivers 5 mg tablet 3-24 by mouth ity of 15:59: daily. [place] [address] Medical Branch tamsulosin Yes Take by Univ ers 0.4 mg 24 3-24 mouth ity of hr capsule 15:59: daily. [place] [address] Medical Branch methocarbam 0 Yes 750mg Take 750 U nivers ol 750 mg 3-24 mg by ity of tablet 15:59: mouth 4 [place] [address] (four) Medical times Branch daily. ibuprofen 0 Yes 800mg Take 800 Uni vers 800 mg 3-24 mg by ity of tablet 15:59: mouth [place] [address] every 6 Medical (six) Branch hours as needed. traMADOL 50 2021-0 Yes 50mg Take 50 mg Univers mg tablet 3-24 by mouth ity of 15:59: every 6 [place] [address] (six) Medical hours as Branch needed. metFORMIN 0 Yes 500mg Take 500 Uni vers 500 mg 3-24 mg by ity of tablet 15:59: mouth 2 [place] 13 (two) Medical times Branch daily with meals. simvastatin 0 Yes 40mg Take 40 mg Univers 40 mg 3-24 by mouth ity of tablet 15:59: at [place] [address] bedtime. Medical Branch metoprolol 0 Yes 100mg Take 100 Un shanelle tartrate 3-24 mg by ity of 100 mg 15:59: mouth 2 [facility] 13 (two) Medical times Branch daily. pantoprazol 0 Yes 40mg Take 40 mg Univers e 40 mg EC 3-24 by mouth ity o f tablet 15:59: daily. [place] [address] Medical Branch clopidogrel 0 Yes 75mg Take 75 mg Univers 75 mg 3-24 by mouth ity of tablet 15:59: daily. [place] [address] Medical Branch lisinopril- 0 Yes 1{tbl} Take 1 Un shanelle hydrochloro 3-24 tablet by ity of thiazide 15:59: mouth [place] 20-25 mg 13 daily. Medical per tablet Branch aspirin 81 0 Yes 81mg Take 81 mg U nivers mg chewable 3-24 by mouth ity of tablet 15:59: daily. [place] [address] Medical Branch finasteride 0 Yes 5mg Take 5 mg U nivers 5 mg tablet 3-24 by mouth ity of 15:59: daily. [place] [address] Medical Branch tamsulosin 0 Yes Take by Univ ers 0.4 mg 24 3-24 mouth ity of hr capsule 15:59: daily. [place] [address] Medical Branch methocarbam 0 Yes 750mg Take 750 U nivers ol 750 mg 3-24 mg by ity of tablet 15:59: mouth 4 [place] [address] (four) Medical times Branch daily. ibuprofen 0 Yes 800mg Take 800 Uni vers 800 mg 3-24 mg by ity of tablet 15:59: mouth [place] 13 every 6 Medical (six) Branch hours as needed. traMADOL 50 2020-0 Yes 50mg Take 50 mg Univers mg tablet 3-24 by mouth ity of 15:59: every 6 [place] [address] (six) Medical hours as Branch needed. metFORMIN Yes 500mg Take 500 Uni vers 500 mg 3-24 mg by ity of tablet 15:59: mouth 2 [place] [address] (two) Medical times [place] daily with meals. simvastatin Yes 40mg Take 40 mg Univers 40 mg 3-24 by mouth ity of tablet 15:59: at [place] [address] bedtime. Medical Branch metoprolol Yes 100mg Take 100 Un shnaelle tartrate 3-24 mg by ity of 100 mg 15:59: mouth 2 [place] tablet 13 (two) Medical times [place] daily. pantoprazol Yes 40mg Take 40 mg Univers e 40 mg EC 3-24 by mouth ity o f tablet 15:59: daily. [address] clopidogrel Yes 75mg Take 75 mg Univers 75 mg 3-24 by mouth ity of tablet 15:59: daily. [address] water for Yes PRN, Univers irrigation 3-24 Starting ity o f irrigation 15:19: Tue [place] solution 11/05/20 at Medic al [address] [place] [address] Until Discontinu ed, Routine, Intra-op sodium 0 Yes PRN, Univers chloride 3-24 Starting ity of (NS) 15:19: Tue [place] injection 11/05/20 at [place] [id number] Until Discontinu ed, Routine, Intra-op neomycin-po 0 Yes PRN, Univer s lymyxin-dex 3-24 Starting ity of amethasone 15:19: Tue [place] (MAXITROL) 11/05/[address] [facility] ical [address] [place] [address] mg/g-10,000 Until unit/g-0.1 Discontinu % ed, ophthalmic Routine, ointment Intra-op Hyaluronida 0 Yes PRN, Univer s se, Human 3-24 Starting ity of Recomb. 15:19: Tue [place] (HYLENEX) 11/05/20 at [facility] injection [address]9[facility] Until Discontinu ed, Routine, Intra-op EPINEPHrine 0 Yes PRN, Univer s 1:1,000 (1 3-24 Starting ity o f mg/mL) 15:18: Tue [place] (ADRENALIN) 11/05/20 at Vt dical injection 1018[facility] Until Discontinu ed, Routine, Intra-op DUOVISC 0 Yes PRN, Univers (DUOVISC 324 Starting ity of VISCO 15:18: Tue [place] ELASTIC) 3 11/05/20 at [facility] %-4 %(0.5 1018, Branch mL) 1 % Until (0.55 mL) Discontinu intraocular ed, injection Routine, Intra-op dexamethaso Yes PRN, Univer s ne 324 Starting ity of (DECADRON 15:17: Tue [place] PHOSPHATE) 00 11/05/[address] [facility] ica injection 1017, [place] Until Discontinu ed, Routine, Intra-op ceFAZolin Yes PRN, Univers (ANCEF) 324 Starting ity of injection 15:17: Tue [place] 00 11/05/20 at [facility] 1017, [place] Until Discontinu ed, FUENTES, Intra-op carbachoL Yes PRN, Univers (MIOSTAT) 24 Starting ity of 0.01 % 15:17: Tue [place] intraocular 00 11/05/20 at Vt dical injection 1017, [place] Until Discontinu ed, Routine, Intra-op balanced Yes PRN, Univers salt irrig 11-05 Starting ity o f soln comb1 15:17: Tue (BSS PLUS) 00 11/05/20 at [facility] ophthalmic 1017, [place] solution Until 500 mL bag Discontinu ed, Routine, Intra-op eye block Yes PRN, Univers syringe 11 11-05 Starting ity o f mL 14:59: Tue [place] 00 11/05/20 at [facility] 0959, [place] Until Discontinu ed, Intra-op mydriatic 2020- No .5mL 0.5 mL, Univ ers #5 11-0524 Right Eye, ity of ophthalmic 14:00: 13:49 ONCE, 1 Bigg as solution 00 :00 dose, Tue Medica l 0.5 mL 11/05/20 at [place] syringe 0900, Routine, DSU Pre-op lactated 2020- No 1000mL at 42 Unive rs ringers IV 24 03-24 mL/hr, ity of infusion 14:00: 13:49 1,000 mL, Bigg as 1,000 mL 00 :00 IV Medical Infusion, Branch ONCE, 1 dose, Tue11/05/20 at 0900, Routine, DSU Pre-op metFORMIN 2019-0 Yes 500mg QD Take 500 Met hodi (GLUCOPHAGE 9-[address] ) 500 mg 14:39: mouth Hospita tablet 24 daily. l metFORMIN 2019-0 Yes 500mg QD Take 500 Met hodi (GLUCOPHAGE 9-[address] ) 500 mg 14:39: mouth Hospita tablet 24 daily. l metFORMIN 2019-0 Yes 500mg QD Take 500 Met hodi (GLUCOPHAGE 9-[address] ) 500 mg 14:39: mouth Hospita tablet 24 daily. l metFORMIN 2019-0 Yes 500mg QD Take 500 Met hodi (GLUCOPHAGE 9-[address] ) 500 mg 14:39: mouth Hospita tablet 24 daily. l metFORMIN 2019-0 Yes 500mg QD Take 500 Met hodi (GLUCOPHAGE 9-[address] ) 500 mg 14:39: mouth Hospita tablet 24 daily. l metFORMIN 2019-0 Yes 500mg QD Take 500 Met hodi (GLUCOPHAGE 9-[address] ) 500 mg 14:39: mouth Hospita tablet 24 daily. l multivitami 2019-0 Yes 1{tbl} QD Take 1 Me thodi n 6-[address] (THERAGRAN) 10:04: mouth Hospi ta tablet 57 daily. l aspirin 2019-0 Yes 81mg QD Take 81 mg Meth la (ECOTRIN) 6-[address] 81 MG 10:04: daily. Hospita enteric 57 l coated tablet albuterol 2018-0 Yes 2.5mg Q6H Take 2.5 Met hodi (ACCUNEB) 6-[address] 2.5 mg /3 10:04: nebulizati Ho spita mL (0.083 57 on every 6 l %) (six) nebulizer hours as solution needed for wheezing. multivitami 2019-0 Yes 1{tbl} QD Take 1 Me thodi n 6-[address] (THERAGRAN) 10:04: mouth Hospi ta tablet 57 daily. l aspirin 2019-0 Yes 81mg QD Take 81 mg Meth la (ECOTRIN) 6-[address] 81 MG 10:04: daily. Hospita enteric 57 l coated tablet albuterol 2019-0 Yes 2.5mg Q6H Take 2.5 Met hodi (ACCUNEB) 6-[address] 2.5 mg /3 10:04: nebulizati Ho spita mL (0.083 57 on every 6 l %) (six) nebulizer hours as solution needed for wheezing. multivitami 2019 Yes 1{tbl} QD Take 1 Me thodi n 6-[address] (THERAGRAN) 10:04: mouth Hospi ta tablet 57 daily. l aspirin 2019-0 Yes 81mg QD Take 81 mg Meth la (ECOTRIN) 6-[address] 81 MG 10:04: daily. Hospita enteric 57 l coated tablet albuterol 2019-0 Yes 2.5mg Q6H Take 2.5 Met hodi (ACCUNEB) 6-[address] 2.5 mg /3 10:04: nebulizati Ho spita mL (0.083 57 on every 6 l %) (six) nebulizer hours as solution needed for wheezing. multivitami Yes 1{tbl} QD Take 1 Me thodi n 6-[address] (THERAGRAN) 10:04: mouth Hospi ta tablet 57 daily. l aspirin 2019-0 Yes 81mg QD Take 81 mg Meth la (ECOTRIN) 6-[address] 81 MG 10:04: daily. Hospita enteric 57 l coated tablet albuterol 2019-0 Yes 2.5mg Q6H Take 2.5 Met hodi (ACCUNEB) 6-[address] 2.5 mg /3 10:04: nebulizati Ho spita mL (0.083 57 on every 6 l %) (six) nebulizer hours as solution needed for wheezing. multivitami Yes 1{tbl} QD Take 1 Me thodi n 6-[address] (THERAGRAN) 10:04: mouth Hospi ta tablet 57 daily. l aspirin 2019-0 Yes 81mg QD Take 81 mg Meth la (ECOTRIN) 6-[address] 81 MG 10:04: daily. Hospita enteric 57 l coated tablet albuterol 2019-0 Yes 2.5mg Q6H Take 2.5 Met hodi (ACCUNEB) 6-[address] 2.5 mg /3 10:04: nebulizati Ho spita mL (0.083 57 on every 6 l %) (six) nebulizer hours as solution needed for wheezing. multivitami 0 Yes 1{tbl} QD Take 1 Me thodi n 6-[address] (THERAGRAN) 10:04: mouth Hospi ta tablet 57 daily. l aspirin 0 Yes 81mg QD Take 81 mg Meth la (ECOTRIN) 6-[address] 81 MG 10:04: daily. Hospita enteric 57 l coated tablet albuterol Yes 2.5mg Q6H Take 2.5 Met hodi (ACCUNEB) 6-[address] 2.5 mg /3 10:04: nebulizati Ho spita mL (0.083 57 on every 6 l %) (six) nebulizer hours as solution needed for wheezing. aspirin 81 Yes 81mg Take 81 mg U nivers mg chewable 2-23 by mouth ity of tablet 15:37: daily. [address] finasteride Yes 5mg Take 5 mg U nivers 5 mg tablet 2-23 by mouth ity of 15:37: daily. [address] tamsulosin Yes Take by [facility] ers 0.4 mg 24 2-23 mouth ity of hr capsule 15:37: daily. [address] methocarbam Yes 750mg Take 750 U nivers ol 750 mg 2-23 mg by ity of tablet 15:37: mouth 4 [place] [address] (four) Medical times Branch daily. ibuprofen 2017 Yes 800mg Take 800 Uni vers 800 mg 2-23 mg by ity of tablet 15:37: mouth [place] [address] every 6 Medical (six) Branch hours as needed. traMADOL 50 2017 Yes 50mg Take 50 mg Univers mg tablet 2-23 by mouth ity of 15:37: every 6 [place] [address] (six) Medical hours as Branch needed. aspirin 81 2017 Yes 81mg Take 81 mg U nivers mg chewable 2-23 by mouth ity of tablet 15:37: daily. [address] finasteride [address] Yes 5mg Take 5 mg U nivers 5 mg tablet 2-23 by mouth ity of 15:37: daily. [address] tamsulosin Yes Take by Univ ers 0.4 mg 24 2-23 mouth ity of hr capsule 15:37: daily. [place] [address] Medical Branch methocarbam 2017-0 Yes 750mg Take 750 U nivers ol 750 mg 2-23 mg by ity of tablet 15:37: mouth 4 [place] [address] (four) Medical times Branch daily. ibuprofen 2017-0 Yes 800mg Take 800 Uni vers 800 mg 2-23 mg by ity of tablet 15:37: mouth [place] [address] every 6 Medical (six) Branch hours as needed. traMADOL 50 2017-0 Yes 50mg Take 50 mg Univers mg tablet 2-23 by mouth ity of 15:37: every 6 [place] [address] (six) Medical hours as Branch needed. aspirin 81 2017-0 Yes 81mg Take 81 mg U nivers mg chewable 2-23 by mouth ity of tablet 15:37: daily. [place] [address] Medical Branch finasteride 2017-0 Yes 5mg Take 5 mg U nivers 5 mg tablet 2-23 by mouth ity of 15:37: daily. [place] [address] Medical Branch tamsulosin 2017-0 Yes Take by Univ ers 0.4 mg 24 2-23 mouth ity of hr capsule 15:37: daily. [place] [address] Medical Branch methocarbam 2017-0 Yes 750mg Take 750 U nivers ol 750 mg 2-23 mg by ity of tablet 15:37: mouth 4 [place] [address] (four) Medical times Branch daily. ibuprofen 2017-0 Yes 800mg Take 800 Uni vers 800 mg 2-23 mg by ity of tablet 15:37: mouth [place] [address] every 6 Medical (six) Branch hours as needed. traMADOL 50 2017-0 Yes 50mg Take 50 mg Univers mg tablet 2-23 by mouth ity of 15:37: every 6 [place] [address] (six) Medical hours as Branch needed. simvastatin 2017-0 Yes 40mg Take 40 mg Univers 40 mg 2-23 by mouth ity of tablet 15:37: at [place] [address] bedtime. Medical Branch metoprolol 2017-0 Yes 100mg Take 100 Un shanelle tartrate 2-23 mg by ity of 100 mg 15:37: mouth 2 [place] tablet 55 (two) Medical times Branch daily. pantoprazol 2017-0 Yes 40mg Take 40 mg Univers e 40 mg EC 2-23 by mouth ity o f tablet 15:37: daily. [place] [address] Medical Branch clopidogrel 2017-0 Yes 75mg Take 75 mg Univers 75 mg 2-23 by mouth ity of tablet 15:37: daily. [place] [address] Medical Branch lisinopril- Yes 1{tbl} Take 1 Un shanelle hydrochloro 2-23 tablet by ity of thiazide 15:37: mouth [place] 20-25 mg 55 daily. Medical per tablet Branch simvastatin Yes 40mg Take 40 mg Univers 40 mg 2-23 by mouth ity of tablet 15:37: at [place] [address] bedtime. Medical Branch metoprolol Yes 100mg Take 100 Un shanelle tartrate 2-23 mg by ity of 100 mg 15:37: mouth 2 [place] tablet 55 (two) Medical times Branch daily. pantoprazol Yes 40mg Take 40 mg Univers e 40 mg EC 2-23 by mouth ity o f tablet 15:37: daily. [address] clopidogrel Yes 75mg Take 75 mg Univers 75 mg 2-23 by mouth ity of tablet 15:37: daily. [address] lisinopril- Yes 1{tbl} Take 1 Un shanelle hydrochloro 2-23 tablet by ity of thiazide 15:37: mouth [place] 20-25 mg 55 daily. Medical per tablet Branch simvastatin Yes 40mg Take 40 mg Univers 40 mg 2-23 by mouth ity of tablet 15:37: at [place] [address] bedtime. Medical Branch metoprolol Yes 100mg Take 100 Un shanelle tartrate 2-23 mg by ity of 100 mg 15:37: mouth 2 [place] tablet 55 (two) Medical times [place] daily. pantoprazol Yes 40mg Take 40 mg Univers e 40 mg EC 2-23 by mouth ity o f tablet 15:37: daily. [place] [address] Medical Branch clopidogrel Yes 75mg Take 75 mg Univers 75 mg 2-23 by mouth ity of tablet 15:37: daily. [place] [address] Medical Branch lisinopril- Yes 1{tbl} Take 1 Un shanelle hydrochloro 2-23 tablet by ity of thiazide 15:37: mouth [place] 20-25 mg 55 daily. Medical per tablet Branch finasteride 2015-08 Yes 5mg QD Take 5 mg M ethodi (PROSCAR) 5 1-[address] mg tablet 00:00: [facility]ly[facility] finasteride 2015-08 Yes 5mg QD Take 5 mg M ethodi (PROSCAR) 5 1-[address] mg tablet 00:00: nightly. [facility] finasteride 2015-08 Yes 5mg QD Take 5 mg M ethodi (PROSCAR) 5 1-[address] mg tablet 00:00: nightly. [facility] l finasteride 2015-08 Yes 5mg QD Take 5 mg M ethodi (PROSCAR) 5 1-[address] mg tablet 00:00: nightly. [facility] l finasteride 2015-08 Yes 5mg QD Take 5 mg M ethodi (PROSCAR) 5 1-[address] mg tablet 00:00: nightly. [facility] l finasteride 2015-08 Yes 5mg QD Take 5 mg M ethodi (PROSCAR) 5 1-[address] mg tablet 00:00: nightly. [facility] l Vital Signs Vital Name Observation Time Observation Value Comments Source Systolic blood 2020-11-26 13:43:00 126 mm[Hg] [facility] Diastolic blood 2020-11-26 13:43:00 57 mm[facility]Hg[facility] 2020-11-26 13:43:00 54 /min [facility] Respiratory rate 2020-11-26 13:43:00 17 /min [facility] Oxygen saturation in 2020-11-26 13:43:00 95 /min [facility] Arterial blood by [facility] Pulse oximetry [place] Body temperature 2020-11-26 13:31:00 36.72 Deysi [facility] Body height 2020-11-17 14:42:00 180.3 cm [facility] Body weight 2020-11-17 14:42:00 127 kg [facility] BMI 2020-11-17 14:42:00 39.07 kg/m2 [facility] Systolic blood 2020-11-26 11:39:00 119 mm[Hg] Univer sity [facility] Diastolic blood 2020-11-26 11:39:00 58 mm[Hg] Unive rsity [facility] Heart rate 2020-11-26 11:39:00 60 /min [facility] [place] [facility] Body temperature 2020-11-26 11:39:00 36.67 Deysi [facility] [place] [facility] Respiratory rate 2020-11-26 11:39:00 18 /min Univ [facility] [place] [facility] Oxygen saturation in 2020-11-26 11:39:00 98 /min University of Arterial blood by [place] [facility] Pulse oximetry Branch Body height 2020-11-17 14:42:00 180.3 cm [facility] [place] [facility] Body weight 2020-11-17 14:42:00 127 kg [facility] [place] [facility] BMI 2020-11-17 14:42:00 39.07 kg/m2 [facility] [place] [facility] Systolic blood 2020-11-05 15:42:00 127 mm[Hg] Univer sity of pressure [place] [facility] Diastolic blood 2020-11-05 15:42:00 67 mm[Hg] Unive rsity of pressure [facility] [place] [facility] Heart rate 2020-11-05 15:42:00 48 /min [facility] [place] [facility] Respiratory rate 2020-11-05 15:42:00 15 /min Univ [facility] [place] [facility] Oxygen saturation in 2020-11-05 15:42:00 99 /min University of Arterial blood by [place] [facility] Pulse oximetry Branch Body temperature 2020-11-05 15:29:00 36.39 Deysi [facility] [place] [facility] Body height 2020-11-04 18:30:00 180.3 cm [facility] [place] [facility] Body weight 2020-11-04 18:30:00 127.007 kg [facility] [place] [facility] BMI 2020-11-04 18:30:00 39.05 kg/m2 [facility] [place] [facility] Height 2021-09-28 15:05:00 180.34 cm [facility] Weight 2021-09-28 15:05:00 [facility] BMI Calculated 2021-09-28 15:05:00 Ryne glover [facility] Height 2021-08-11 20:24:00 180.34 cm [facility] Weight 2021-08-11 20:24:00 [facility] BMI Calculated 2021-08-11 20:24:00 Ryne Santana Procedures Procedure Date / Time Performing Source Performed Clinician Cystourethroscopy (separate 2021-08-11 [place] rial Dema procedure) 22:53:00 PHACOEMULSIFICATION OF 2020-11-26 Solomon Leyva [facility] CATARACT WITH INTRAOCULAR 12:47:00 Medica l Branch LENS IMPLANT POCT GLUCOSE (AUTOMATED) 2020-11-26 Solomon Leyva [facility] 11:57:00 Medical Branch POCT GLUCOSE (AUTOMATED) 2020-11-26 Solomon Leyva [facility] 11:57:00 Medical Branch ASSIGNMENT OF BENEFITS 2020-11-25 Doctor Unassigned, [facility] 15:47:25 [place] [facility] POCT GLUCOSE(AGE >30DAYS) 2020-11-05 Saul Be [facility] 13:48:00 Medical Branch POCT GLUCOSE (AUTOMATED) 2020-11-05 Solomon Leyva [facility] 13:47:00 Medical Branch ASSIGNMENT OF BENEFITS 2020-10-31 Doctor Unassigned, [facility] 16:46:37 [place] [facility] [place] Hip replacement [facility] Tonsillectomy [facility] Plan of Care Planned Activity Planned Date Details Comments Source Future Scheduled 2022-09-08 65+ [facility] 02:46:28 VACCINE (1 - PCV) [code = 65+ PNEUMOCOCCAL VACCINE (1 - PCV)] Future Scheduled 2022-09-08 SHINGLES VACCINES (1 Met [facility] Test 02:46:28 of 2) [code = SHINGLES VACCINES (1 of 2)] Future Scheduled 2022-09-08 COVID-19 VACCINE (2 - [facility] Test 02:46:28 Pfizer series) [code = COVID-19 VACCINE (2 - Pfizer series)] Future Scheduled 2022-09-08 INFLUENZA VACCINE [facility] Test 02:46:28 [code = INFLUENZA VACCINE] Future Scheduled 2022-08-30 65+ PNEUMOCOCCAL Methodi Hospital Test 16:18:07 VACCINE (1 - PCV) [code = 65+ PNEUMOCOCCAL VACCINE (1 - PCV)] Future Scheduled 2022-08-30 Hepatitis C screening [facility] Test 16:18:07 (procedure) [code = 570895321] Future Scheduled 2022-08-30 SHINGLES VACCINES (1 Met [facility] Test 16:18:07 of 2) [code = SHINGLES VACCINES (1 of 2)] Future Scheduled 2022-08-30 COVID-19 VACCINE ([facility] - [facility] 16:18:07 Pfizer series) [code = COVID-19 VACCINE (2 - Pfizer series)] Future Scheduled 2022-08-30 INFLUENZA VACCINE Method ist Hospital Test 16:18:07 [code = INFLUENZA VACCINE] Future Scheduled 2022-07-28 INFLUENZA VACCINE Method ist Hospital Test 02:41:10 [code = INFLUENZA VACCINE] Future Scheduled 2022-07-28 65+ PNEUMOCOCCAL Methodi Hospital Test 02:41:10 VACCINE (1 - PCV) [code = 65+ PNEUMOCOCCAL VACCINE (1 - PCV)] Future Scheduled 2022-07-28 Hepatitis C screening [facility] Test 02:41:10 (procedure) [code = 856067456] Future Scheduled 2022-07-28 SHINGLES VACCINES (1 [facility] Test 02:41:10 of 2) [code = SHINGLES VACCINES (1 of 2)] Future Scheduled 2022-07-28 COVID-19 VACCINE (2 - [facility] Test 02:41:10 Pfizer series) [code = COVID-19 VACCINE (2 - Pfizer series)] Future Scheduled 2022-07-28 INFLUENZA VACCINE Method is Hospital Test 02:41:10 [code = INFLUENZA VACCINE] Future Scheduled 2022-07-28 65+ PNEUMOCOCCAL Methodi Hospital Test 02:41:10 VACCINE (1 - PCV) [code = 65+ PNEUMOCOCCAL VACCINE (1 - PCV)] Future Scheduled 2022-07-28 Hepatitis C screening [facility] Test 02:41:10 (procedure) [code = 157054414] Future Scheduled 2022-07-28 SHINGLES VACCINES (1 [facility] Test 02:41:10 of 2) [code = SHINGLES VACCINES (1 of 2)] Future Scheduled 2022-07-28 COVID-19 VACCINE (2 - [facility] Test 02:41:10 Pfizer series) [code = COVID-19 VACCINE (2 - Pfizer series)] Future Scheduled 2022-07-28 INFLUENZA VACCINE Method ist Hospital Test 02:41:10 [code = INFLUENZA VACCINE] Future Scheduled 2022-07-28 65+ PNEUMOCOCCAL Methodi Hospital Test 02:41:10 VACCINE (1 - PCV) [code = 65+ PNEUMOCOCCAL VACCINE (1 - PCV)] Future Scheduled 2022-07-28 Hepatitis C screening [facility] Test 02:41:10 (procedure) [code = [id number]] Future Scheduled 2022-07-28 SHINGLES VACCINES (1 Met [facility] Test 02:41:10 of 2) [code = SHINGLES VACCINES (1 of 2)] Future Scheduled 2022-07-28 COVID-19 VACCINE (2 - [facility] Test 02:41:10 Pfizer series) [code = COVID-19 VACCINE (2 - Pfizer series)] Future Scheduled 2022-07-28 INFLUENZA VACCINE Method ist Hospital Test 02:41:10 [code = INFLUENZA VACCINE] Future Scheduled 2022-07-28 65+ PNEUMOCOCCAL Methodi Hospital Test 02:41:10 VACCINE (1 - PCV) [code = 65+ PNEUMOCOCCAL VACCINE (1 - PCV)] Future Scheduled 2022-07-28 Hepatitis C screening [facility] Test 02:41:10 (procedure) [code = [id number]] Future Scheduled 2022-07-28 SHINGLES VACCINES (1 [facility] Test 02:41:10 of 2) [code = SHINGLES VACCINES (1 of 2)] Future Scheduled 2022-07-28 COVID-19 VACCINE (2 - [facility] Test 02:41:10 Pfizer series) [code = COVID-19 VACCINE (2 - Pfizer series)] Encounters Start End Encounter Admission Attending Care Care Encounter Source Date/Time Date/Time Type Type Clinicians Facility Department ID 2021-06-14 Outpatient Netta LEYVA [facility] OPH [id number] Univers 10:02:52 [facility] 2021-06-14 Outpatient Netta LEYVA [facility] OPH [id number] Univers 05:21:56 [facility] 2022-06-16 2022-06-16 Alan Perez.2.840.1 [id number] Methodi 00:00:00 00:00:00 Ana Paula Cruz [address]36.1.[address] 3.430.2.7 Hospit a .3.293233 l .8 2022-06-16 2022-06-16 Alan Perez.2.840.1 [id number] Methodi 00:00:00 00:00:00 Ana Paula R. 43255.1.[address] 3.430.2.7 Hospit a .3.692542 l .8 2022-05-01 2022-05-01 Refill Lopez, 1.2.840.1 [id number] Methodi 00:00:00 00:00:00 Ana Paula R. 28522.1.[address] 3.430.2.7 Hospit a .3.228475 l .8 2022-05-01 2022-05-01 Refill Lopez, 1.2.840.1 [id number] 1577 Methodi 00:00:00 00:00:00 Ana Paula R. 79482.1.[address] 3.430.2.7 Hospit a .3.167416 l .8 2022-03-22 2022-03-22 Ambulatory nullFlavo MG Multi 55 [id number] Memoria 13:30:00 13:30:00 Pre-Reg r Specialty [address] [facility] 2022-03-22 2022-03-22 Ambulatory nullFlavo MG Multi 55 [id number] Memoria 13:30:00 13:30:00 Pre-Reg r Specialty [address] [place] [address] 2022-03-22 2022-03-22 [facility] [id number] Memoria 08:30:00 08:30:[address] [place] [address] 2022-03-22 2022-03-22 [facility] [id number] 08:30:00 08:30:00 Alexus L 06 2022-02-03 2022-02-03 Refill Casie, 1.2.840.1 [id number] Methodi 00:00:00 00:00:00 Ana Paula R. 97421.1.[address] 3.430.2.7 Hospit a .3.482025 l .8 2022-02-03 2022-02-03 Refill Casie, 1.2.840.1 [id number] 7596 Methodi 00:00:00 00:00:00 Ana Paula R. 61040.1.[address] 3.430.2.7 Hospit a .3.785107 l .8 2021-12-17 2021-12-17 Refill Casie, 1.2.840.1 [id number] Methodi 00:00:00 00:00:00 Ana Paula R. 49858.1.[address] 3.430.2.7 Hospit a .3.277034 l .8 2021-12-17 2021-12-17 Refill Casie, 1.2.840.1 [id number] Methodi 00:00:00 00:00:00 Ana Paula R. 27856.1.[address] 3.430.2.7 Hospit a .3.581116 l .8 2021-11-23 2021-11-24 Outpatient nullFlavo [facility] Multi 55 [id number] Memoria 20:30:00 04:59:59 r Specialty 05 l [facility] 2021-11-23 2021-11-24 Outpatient nullFlavo MG Multi 55 [id number] Memoria 20:30:00 04:59:59 r Specialty 05 l [facility] 2021-11-23 2021-11-23 Outpatient Staller[facility] [id number] 15:30:00 23:59:59 Alexus [facility] 2021-11-23 2021-11-23 Outpatient IE IE [id number] Memoria 15:30:00 15:30:[address] [facility] 2021-10-31 2021-10-31 Sal Lopez, 1.2.840.1 [id number] Methodi 00:00:00 00:00:00 Ana Paula R. 69752.1.[address] 3.430.2.7 Hospit a .3.185732 l .8 2021-10-31 2021-10-31 Sal Lopez, 1.2.840.1 [id number] 7826 Methodi 00:00:00 00:00:00 Ana Paula R. 00190.1.[address] 3.430.2.7 Hospit a .3.513282 l .8 2021-10-26 2021-10-26 [place] [id number] Memoria 15:00:00 15:00:00 Pre-Reg r Urology 04 l Saloni Nilam [facility] 2021-10-26 2021-10-26 [place] [id number] Memoria 15:00:00 15:00:00 Pre-Reg r Urology 04 l Saloni Nilam nn Time Share 2021-10-26 2021-10-26 Outpatient LIN CEBALLOS [id number] Memoria 10:00:00 10:00:00 04 ortega Alicia 2021-10-26 2021-10-26 Outpatient Gloriaer, MG MG [id number] 10:00:00 10:00:00 Alexus L 04 2021-09-28 2021-09-29 Outpatient nullFlavo MG Multi 55 [id number] Memoria 15:20:00 05:59:59 r Specialty 03 l [facility] 2021-09-28 2021-09-29 Outpatient nullFlavo MG Multi 55 [id number] Memoria 15:20:00 05:59:59 r Specialty 03 l [facility] 2021-09-28 2021-09-28 [facility] [id number] 09:20:00 23:59:59 Alexus L 03 2021-09-28 2021-09-28 Outpatient LIN CEBALLOS [id number] Memoria 09:20:00 09:20:00 03 ortega Alicia 2021-08-11 2021-08-12 [place] [id number] Memoria 20:30:00 05:59:59 r Urology 01 ortega Saloni Nilam nn Time Share 2021-08-11 2021-08-12 [place] [id number] Memoria 20:30:00 05:59:59 r Urology 01 l Associates Nilam nn Time Share 2021-08-11 2021-08-11 Outpatient Gloriaer, MG MG [id number] 14:30:00 23:59:59 Alexus L 2021-08-11 2021-08-11 Outpatient LIN CEBALLOS [id number] Memoria 14:30:00 14:30:00 ortega Alicia 2021-08-11 2021-08-11 Outpatient MHIE MHIE [id number] Memoria 14:30:00 14:30:00 02 ortega Dema 2021-08-11 2021-08-11 Outpatient MHIE MHIE [id number] Memoria 14:30:00 14:30:00 02 rotega Dema 2021-08-03 2021-08-04 Outpt Diag nullFlavo [facility] [id number] Memoria 16:17:00 05:59:00 Services r Outpatient 00 l [facility] 2021-08-03 2021-08-04 Outpt Diag nullFlavo [facility] [id number] Memoria 16:17:00 05:59:00 Services r Outpatient 00 [facility] [place] [facility] 2021-08-03 2021-08-03 Outpatient Staller, MHOIP MHOIP [id number] 10:17:00 23:59:00 Alexus [facility] 2021-06-26 2021-06-27 Between nullFlavo [facility] Multi [id number] Memoria 16:53:03 16:53:03 Visit r Specialty 01 [facility] 2021-06-26 2021-06-27 Between nullFlavo [facility] Multi [id number] Memoria 16:53:03 16:53:03 Visit r Specialty 01 [facility] 2021-06-26 2021-06-27 [facility] [id number] 10:53:03 10:53:03 2021-06-25 2021-06-26 Between nullFlavo [facility] Multi [id number] Memoria 13:41:14 13:41:14 Visit r Specialty 00 [facility] 2021-06-25 2021-06-26 Between nullFlavo [facility] Multi [id number] Memoria 13:41:14 13:41:14 Visit r Specialty 00 [facility] 2021-06-25 2021-06-26 Outpatient MG MG [id number] 07:41:14 07:41:14 2021-06-22 2021-06-23 Outpatient nullFlavo MG Multi 55 [id number] Memoria 15:40:00 05:59:59 r Specialty 00 l [facility] 2021-06-22 2021-06-23 Outpatient nullFlavo [facility] Multi 55 [id number] Memoria 15:40:00 05:59:59 r Specialty 00 l Wilian Lovell 2021-06-22 2021-06-22 Outpatient Antony [facility] [id number] 09:40:00 23:59:59 Alexus L 00 2021-06-22 2021-06-22 Outpatient LIN [facility] [id number] Memoria 09:40:00 09:40:00 00 ortega Alicia 2020-11-26 2020-11-26 Hospital [facility] 1.2.914.170 [id number] Univers 06:32:00 08:54:00 Encounter Solomon Sharp 350.1.13.10 [place] [id number] [facility] 071 Branch 2020-11-26 2020-11-26 Surgery [facility] 1.2.840.114 [id number] Univers 07:30:00 08:11:00 Solomon Sharp 350.1.13.10 [place] [id number] [facility] 020 Branch 2020-11-25 2020-11-25 Laboratory Only, Adc Test [facility] 1.2.840. 114 [id number] Univers 10:45:44 11:00:44 Only Solomon Leyva 350.1.13.1 0 [place] [id number] [facility] 353 Branch 2020-11-25 2020-11-25 [facility] [id number] Univers 10:30:00 10:30:00 SOLOMON schreiber of [facility] 2020-11-25 2020-11-25 Orders Doctor BHAGAT 1.2.840.114 [id number] Univers 00:00:00 00:00:00 Only Unassigned, GEOVANNI 350.1.13.10 ity of [place] [facility] 4.2.7.2.686 [place] [id number] [facility] 009 Branch 2020-11-052020-11-05 Hospital Kushal [facility] 1.2.327.581 [id number] Univers 08:30:00 10:55:00 Encounter Solomon Sharp 350.1.13.10 [place] [id number] [facility] 071 [place] 2020-11-04 2020-11-04 Laboratory Only, [facility] Test [facility] 1.2.840. 114 [id number] Univers 08:33:19 09:03:19 Only Solomon Leyva 350.1.13.1 0 [place]2.[place] [id number] [facility] 353 [place] 2020-11-04 2020-11-04 [facility] [id number] Univers 08:45:00 08:45:00 SOLOMON itmagda [facility] 2020-10-31 2020-10-31 Manager Interface Nadine, [facility] Lab Main [facility] 1.2.8 40.114 [id number] Univers 11:45:15 12:00:15 Visit Solomon Leyva 350.1.13.1 0 [place] [facility] [id number] [facility] 2020-10-31 2020-10-31 [facility] [id number] Univers 10:45:00 10:45:00 SOLOMON itmagda [facility] 2020-10-31 2020-10-31 Orders Doctor BHAGAT 1.2.840.114 [id number] Univers 00:00:00 00:00:00 Only Unassigned, GEOVANNI 350.1.13.10 [facility]y [facility] [place] [facility] 4.2.7.2.686 [place] [id number] [facility] 009 Branch 2019-11-30 2019-11-30 Outpatient CASIE [facility] [id number] [address] [place] [address] 00:00:00 00:00:00 ANA PAULA [address] Results Test Description Test Time Test Comments Results Result Comments Source URINE AND STOOL 2021-08-11 20:14:00 Test Item Value Reference Range Interpretation Comme nts POC UA Uro (test code = POC UA Uro) 0.2 0.1-1.0 [facility] [id number] 20:14:00 Test Item Value Reference Range Interpretation Comments POC UA Nit (test code Negative *NA*(08/11/21 = POC UA Nit) 2:14 PM) [facility] [id number] 20:14:00 Test Item Value Reference Range Interpretation Comments POC UA LeukEst (test Negative *NA*(08/11/21 code = POC UA LeukEst) 2:14 PM) [facility] [id number] 20:14:00 Test Item Value Reference Range Interpretation Comments POC UA Color (test Yellow *NA*(08/11/21 code = POC UA Color) 2:14 PM) [facility] [id number] 20:14:00 Test Item Value Reference Range Interpretation Comments POC UA Turbidity (test Clear *NA*(08/11/21 code = POC UA Turbidity) 2:14 PM) [facility] [id number] 20:14:00 Test Item Value Reference Range Interpretation Comments POC UA SG (test code = POC UA SG) 1.020 1 [facility] [id number] 20:14:00 Test Item Value Reference Range Interpretation Comments POC UA pH (test code = POC UA pH) 7.0 1 5.0-8.0 [facility] [id number] 20:14:00 Test Item Value Reference Range Interpretation Comments POC UA Prot (test code = POC Negative mg/dL UA Prot) [facility] [id number] 20:14:00 Test Item Value Reference Range Interpretation Comments POC UA Glu (test code = POC UA Negative mg/dL Glu) [facility] [id number] 20:14:00 Test Item Value Reference Range Interpretation Comments POC UA Ket (test code = POC UA Negative mg/dL Ket) [facility] [id number] 20:14:00 Test Item Value Reference Range Interpretation Comments POC UA Bili (test Negative *NA*(08/11/21 code = POC UA Bili) 2:14 PM) [facility] [id number] 20:14:00 Test Item Value Reference Range Interpretation Comments POC UA Bld (test code Negative *NA*(08/11/21 = POC UA Bld) 2:14 PM) [facility] [id number] 20:14:00 Test Item Value Reference Range Interpretation Comments POC UA Uro (test code = POC UA Uro) 0.2 0.1-1.0 [facility] [id number] 20:14:00 Test Item Value Reference Range Interpretation Comments POC UA Nit (test code Negative *NA*(08/11/21 = POC UA Nit) 2:14 PM) [facility] [id number] 20:14:00 Test Item Value Reference Range Interpretation Comments POC UA LeukEst (test Negative *NA*(08/11/21 code = POC UA LeukEst) 2:14 PM) [facility] [id number] 20:14:00 Test Item Value Reference Range Interpretation Comments POC UA Color (test Yellow *NA*(08/11/21 code = POC UA Color) 2:14 PM) [facility] [id number] 20:14:00 Test Item Value Reference Range Interpretation Comments POC UA Turbidity (test Clear *NA*(08/11/21 code = POC UA Turbidity) 2:14 PM) [facility] [id number] 20:14:00 Test Item Value Reference Range Interpretation Comments POC UA SG (test code = POC UA SG) 1.020 1 [facility] [id number] 20:14:00 Test Item Value Reference Range Interpretation Comments POC UA pH (test code = POC UA pH) 7.0 1 5.0-8.0 [facility] [id number] 20:14:00 Test Item Value Reference Range Interpretation Comments POC UA Prot (test code = POC Negative mg/dL UA Prot) [facility] [id number] 20:14:00 Test Item Value Reference Range Interpretation Comments POC UA Glu (test code = POC UA Negative mg/dL Glu) [facility] [id number] 20:14:00 Test Item Value Reference Range Interpretation Comments POC UA Ket (test code = POC UA Negative mg/dL Ket) [facility] [id number] 20:14:00 Test Item Value Reference Range Interpretation Comments POC UA Bili (test Negative *NA*(08/11/21 code = POC UA Bili) 2:14 PM) [facility] [id number] 20:14:00 Test Item Value Reference Range Interpretation Comments POC UA Bld (test code Negative *NA*(08/11/21 = POC UA Bld) 2:14 PM) [facility] [id number] 20:14:00 Test Item Value Reference Range Interpretation Comments POC UA Uro (test code = POC UA Uro) 0.2 0.1-1.0 [facility] [id number] 20:14:00 Test Item Value Reference Range Interpretation Comments POC UA Nit (test code Negative *NA*(08/11/21 = POC UA Nit) 2:14 PM) [facility] [id number] 20:14:00 Test Item Value Reference Range Interpretation Comments POC UA LeukEst (test Negative *NA*(08/11/21 code = POC UA LeukEst) 2:14 PM) [facility] [id number] 20:14:00 Test Item Value Reference Range Interpretation Comments POC UA Color (test Yellow *NA*(08/11/21 code = POC UA Color) 2:14 PM) [facility] [id number] 20:14:00 Test Item Value Reference Range Interpretation Comments POC UA Turbidity (test Clear *NA*(08/11/21 code = POC UA Turbidity) 2:14 PM) [facility] [id number] 20:14:00 Test Item Value Reference Range Interpretation Comments POC UA SG (test code = POC UA SG) 1.020 [facility] [id number] 20:14:00 Test Item Value Reference Range Interpretation Comments POC UA pH (test code = POC UA pH) 7.0 1 5.0-8.0 [facility] [id number] 20:14:00 Test Item Value Reference Range Interpretation Comments POC UA Prot (test code = POC Negative mg/dL UA Prot) [facility] [id number] 20:14:00 Test Item Value Reference Range Interpretation Comments POC UA Glu (test code = POC UA Negative mg/dL Glu) [facility] [id number] 20:14:00 Test Item Value Reference Range Interpretation Comments POC UA Ket (test code = POC UA Negative mg/dL Ket) [facility] [id number] 20:14:00 Test Item Value Reference Range Interpretation Comments POC UA Bili (test Negative *NA*(08/11/21 code = POC UA Bili) 2:14 PM) [facility] [id number] 20:14:00 Test Item Value Reference Range Interpretation Comments POC UA Bld (test code Negative *NA*(08/11/21 = POC UA Bld) 2:14 PM) [facility] [id number] 20:14:00 Test Item Value Reference Range Interpretation Comments POC UA Uro (test code = POC UA Uro) 0.2 0.1-1.0 [facility] [id number] 20:14:00 Test Item Value Reference Range Interpretation Comments POC UA Nit (test code Negative *NA*(08/11/21 = POC UA Nit) 2:14 PM) [facility] [id number] 20:14:00 Test Item Value Reference Range Interpretation Comments POC UA LeukEst (test Negative *NA*(08/11/21 code = POC UA LeukEst) 2:14 PM) [facility] [id number] 20:14:00 Test Item Value Reference Range Interpretation Comments POC UA Color (test Yellow *NA*(08/11/21 code = POC UA Color) 2:14 PM) [facility] [id number] 20:14:00 Test Item Value Reference Range Interpretation Comments POC UA Color (test Yellow *NA*(08/11/21 code = POC UA Color) 2:14 PM) [facility] [id number] 20:14:00 Test Item Value Reference Range Interpretation Comments POC UA Turbidity (test Clear *NA*(08/11/21 code = POC UA Turbidity) 2:14 PM) [facility] [id number] 20:14:00 Test Item Value Reference Range Interpretation Comments POC UA SG (test code = POC UA SG) 1.020 1 [facility] [id number] 20:14:00 Test Item Value Reference Range Interpretation Comments POC UA pH (test code = POC UA pH) 7.0 1 5.0-8.0 [facility] [id number] 20:14:00 Test Item Value Reference Range Interpretation Comments POC UA Prot (test code = POC Negative mg/dL UA Prot) [facility] [id number] 20:14:00 Test Item Value Reference Range Interpretation Comments POC UA Glu (test code = POC UA Negative mg/dL Glu) [facility] [id number] 20:14:00 Test Item Value Reference Range Interpretation Comments POC UA Ket (test code = POC UA Negative mg/dL Ket) [facility] [id number] 20:14:00 Test Item Value Reference Range Interpretation Comments POC UA Bili (test Negative *NA*(08/11/21 code = POC UA Bili) 2:14 PM) [facility] [id number] 20:14:00 Test Item Value Reference Range Interpretation Comments POC UA Bld (test code Negative *NA*(08/11/21 = POC UA Bld) 2:14 PM) [facility] [id number] 20:14:00 Test Item Value Reference Range Interpretation Comments POC UA Uro (test code = POC UA Uro) 0.2 0.1-1.0 [facility] [id number] 20:14:00 Test Item Value Reference Range Interpretation Comments POC UA Nit (test code Negative *NA*(08/11/21 = POC UA Nit) 2:14 PM) [facility] [id number] 20:14:00 Test Item Value Reference Range Interpretation Comments POC UA LeukEst (test Negative *NA*(08/11/21 code = POC UA LeukEst) 2:14 PM) [facility] [id number] 20:14:00 Test Item Value Reference Range Interpretation Comments POC UA Turbidity (test Clear *NA*(08/11/21 code = POC UA Turbidity) 2:14 PM) [facility] [id number] 20:14:00 Test Item Value Reference Range Interpretation Comments POC UA SG (test code = POC UA SG) 1.020 1 [facility] [id number] 20:14:00 Test Item Value Reference Range Interpretation Comments POC UA pH (test code = POC UA pH) 7.0 1 5.0-8.0 [facility] [id number] 20:14:00 Test Item Value Reference Range Interpretation Comments POC UA Prot (test code = POC Negative mg/dL UA Prot) [facility] [id number] 20:14:00 Test Item Value Reference Range Interpretation Comments POC UA Glu (test code = POC UA Negative mg/dL Glu) [facility] [id number] 20:14:00 Test Item Value Reference Range Interpretation Comments POC UA Ket (test code = POC UA Negative mg/dL Ket) [facility] [id number] 20:14:00 Test Item Value Reference Range Interpretation Comments POC UA Bili (test Negative *NA*(08/11/21 code = POC UA Bili) 2:14 PM) [facility] [id number] 20:14:00 Test Item Value Reference Range Interpretation Comments POC UA Bld (test code Negative *NA*(08/11/21 = POC UA Bld) 2:14 PM) [facility] [id number] 20:14:00 Test Item Value Reference Range Interpretation Comments POC UA Uro (test code = POC UA Uro) 0.2 0.1-1.0 [facility] AND [id number] 20:14:00 Test Item Value Reference Range Interpretation Comments POC UA Nit (test code Negative *NA*(08/11/21 = POC UA Nit) 2:14 PM) [facility] AND [id number] 20:14:00 Test Item Value Reference Range Interpretation Comments POC UA LeukEst (test Negative *NA*(08/11/21 code = POC UA LeukEst) 2:14 PM) [facility] [id number] 20:14:00 Test Item Value Reference Range Interpretation Comments POC UA Color (test Yellow *NA*(08/11/21 code = POC UA Color) 2:14 PM) [facility] [id number] 20:14:00 Test Item Value Reference Range Interpretation Comments POC UA Turbidity (test Clear *NA*(08/11/21 code = POC UA Turbidity) 2:14 PM) [facility] [id number] 20:14:00 Test Item Value Reference Range Interpretation Comments POC UA SG (test code = POC UA SG) 1.020 1 [facility] AND [id number] 20:14:00 Test Item Value Reference Range Interpretation Comments POC UA pH (test code = POC UA pH) 7.0 1 5.0-8.0 [facility] AND [id number] 20:14:00 Test Item Value Reference Range Interpretation Comments POC UA Prot (test code = POC Negative mg/dL UA Prot) [facility] AND [id number] 20:14:00 Test Item Value Reference Range Interpretation Comments POC UA Glu (test code = POC UA Negative mg/dL Glu) [facility] AND [id number] 20:14:00 Test Item Value Reference Range Interpretation Comments POC UA Ket (test code = POC UA Negative mg/dL Ket) [facility] AND [id number] 20:14:00 Test Item Value Reference Range Interpretation Comments POC UA Bili (test Negative *NA*(08/11/21 code = POC UA Bili) 2:14 PM) [facility] AND [id number] 20:14:00 Test Item Value Reference Range Interpretation Comments POC UA Bld (test code Negative *NA*(08/11/21 = POC UA Bld) 2:14 PM) [facility] GLUCOSE (AUTOMATED)2020-11-26 12:01:45 Test Item Value Reference Range Interpretation Comments POCT GLU (test code = 7088102673) 136 mg/dL 70-110 H Lab Interpretation (test code = Abnormal 52616-3) [facility] GLUCOSE (AUTOMATED)2020-11-26 12:01:45 Test Item Value Reference Range Interpretation Comments POCT GLU (test code = [id number]) 136 mg/dL 70-110 H Lab Interpretation (test code = Abnormal 88772-0) [facility] [id number] 11:57:00 Test Item Value Reference Range Interpretation Comments POCT Glu (age>30days) (test code = 136 mg/dL 70-110 A 3342) Lab Interpretation (test code = Abnormal 63714-3) [facility] [id number] 11:57:00 Test Item Value Reference Range Interpretation Comments POCT Glu (age>30days) (test code = 136 mg/dL 70-110 A 3342) Lab Interpretation (test code = Abnormal 57883-3) [facility] GLUCOSE (AUTOMATED)2020-11-05 13:59:49 Test Item Value Reference Range Interpretation Comments POCT GLU (test code = [id number]) 148 mg/dL 70-110 H Lab Interpretation (test code = Abnormal 39427-2) [facility] [id number] 13:48:00 Test Item Value Reference Range Interpretation Comments POCT Glu (age>30days) (test code = 148 mg/dL 70-110 A 3342) Lab Interpretation (test code = Abnormal 64213-8) [facility]
--- NOTE | 2022-10-22 09:43 | RAD REPORT ---
EXAM DESCRIPTION: RAD - Wrist Left 3 View - 10/22/2022 9:28 am CLINICAL HISTORY: pain, swelling COMPARISON: No comparisons FINDINGS/IMPRESSION: Distal radial impaction fracture with intra-articular extension, overriding, an d dorsal volar tilt. Degenerative changes at the base of the thumb. No dislocation. Pleural vascular calcifications.
--- NOTE | 2022-11-05 16:28 | EDPHYS ---
Physician Documentation [facility] Name: Margarito Wright Age: 82 yrs Sex: Male : 1940 Arrival Date: 10/22/2022 Time: 08:46 Bed 20 Private MD: ED Physician Marciano Solano HPI: 10/22 09:52 This 82 yrs old Male presents to ER via Ambulatory with complaints of Fall Injury, jmm Wrist Injury. 09:52 Details of fall: The patient fell from an upright position. Onset: The symptoms/episode jmm began/occurred acutely, just prior to arrival. Associated injuries: The patient sustained left wrist. This is an 82 year old male with a history of dm, hlp that presents to [facility] ED with complaints of left wrist pain and swelling following a fall from standing position. Denies head injury, neck pain, back pain. States taking 3 acetaminophen tablets and coffee without relief. . Historical: - Allergies: 09:06 Codeine (Upset stomach); ph 09:06 Demerol (Upset stomach); ph 09:06 Morphine ((sedation and nausea)); ph 09:06 [place] (Upset stomach); ph - PMHx: 09:06 Hyperlipidemia; Tachycardia; Diabetes mellitus; ph - Immunization history:: Adult Immunizations unknown. - Social history:: Smoking status: Patient/guardian denies using tobacco, but has a distant history of tobacco abuse. ROS: 09:52 Constitutional: Negative for fever, chills, and weight loss, Cardiovascular: Negative jmm for chest pain, palpitations, and edema, Respiratory: Negative for shortness of breath, cough, wheezing, and pleuritic chest pain. 09:52 MS/extremity: Positive for pain, swelling. 09:52 All other systems are negative. Exam: 09:52 Constitutional: This is a well developed, well nourished patient who is awake, alert, jmm and in no acute distress. Head/Face: atraumatic. Eyes: EOMI, no conjunctival erythema appreciated ENT: Moist Mucus Membranes Neck: Trachea midline, Supple Chest/axilla: Normal chest wall appearance and motion. Cardiovascular: Regular rate and rhythm. No edema appreciated Respiratory: Normal respirations, no respiratory distress appreciated Abdomen/GI: Non distended Back: Normal ROM Skin: General appearance color normal 09:52 Musculoskeletal/extremity: swelling noted to the left wrist, full radial pulse, compartments are soft, NVI. 09:52 Skin: Appearance: Color: normal in color. 09:52 Neuro: Motor: is normal. 09:52 Psych: Behavior/mood is pleasant, cooperative. Vital Signs: 09:04 BP 103 / 55; Pulse 55; Resp 18; Temp 97.6; Pulse Ox 100% on R/A; Weight 120.2 kg; ph Height 5 ft. 11 in. ; 10:44 BP 118 / 55; Pulse 56; Resp 19 S; Pulse Ox 96% on R/A; kc6 09:04 Body Mass Index 36.96 (120.20 kg, 180.34 cm) ph MDM: 08:55 Patient medically screened. [facility] 09:54 Data reviewed: vital signs, nurses notes, radiologic studies, plain films. I considered [facility] the following discharge prescriptions or medication management in the emergency department Medications were administered in the Emergency Department. See MAR. Independent interpretation of the following test(s) in the Emergency Department X-Ray: My interpretation is distal radial fracture. Historians other than the Patient: family. Counseling: I had a detailed discussion with the patient and/or guardian regarding: the historical points, exam findings, and any diagnostic results supporting the discharge/admit diagnosis, radiology results, the need for outpatient follow up, to return to the emergency department if symptoms worsen or persist or if there are any questions or concerns that arise at home. 10/22 08:56 Order name: Wrist Left (3 View) XRAY; Complete Time: 09:44 [facility] 10/22 09:45 Order name: Sugar Tong Forearm Splint; Complete Time: 10:43 [facility] 10/22 09:45 Order name: Sling; Complete Time: 10:43 [facility] Administered Medications: No medications were administered Disposition: 16:02 Co-signature as Attending Physician, Marciano Solano MD I reviewed the patient's care rn provided by the Advanced Practice Provider and agree with the diagnosis and treatment plan. Disposition Summary: 10/22/22 10:45 Discharge Ordered Location: Home [facility] Condition: Stable [facility] Diagnosis - Distal Radial Fracture [facility] Followup: [facility] - With: Solomon Best MD - When: 2 - 3 days - Reason: Recheck today's complaints, Continuance of care, Re-evaluation by your physician Discharge Instructions: - Discharge Summary Sheet [facility] - Radial Fracture jm Forms: - Medication Reconciliation Form jm - Thank You Letter jm - Antibiotic Education jm - Prescription Opioid Use [facility] Prescriptions: - Ultracet 37.5-325 mg Oral Tablet - take 1 tablet by ORAL route every 6 hours - for up to 5 days; do not exceed 8 jmm tablets per day.; 20 tablet; Refills: 0, Product Selection Permitted Signatures: Dispatcher [employer] Jose Sánchez PA PA jmm Nieto, Roman, MD MD rn Fide Trevino RN RN ph
--- NOTE | 2022-11-05 16:28 | ER ---
Nurse's Notes [facility] Name: Margarito Wright Age: 82 yrs Sex: Male : 1940 Arrival Date: 10/22/2022 Time: 08:46 Bed 20 Private MD: Diagnosis: Distal Radial Fracture Presentation: 10/22 09:04 Chief complaint: Patient states: was taking out trash this morning, tripped and fell, ph landed on L wrist, swelling and pain to L wrist that was not relieved w/ Tylenol, denies other injury or LOC. Coronavirus screen: Vaccine status: Patient reports receiving the 2nd dose of the covid vaccine. Ebola Screen: No symptoms or risks identified at this time. Initial Sepsis Screen: Does the patient meet any 2 criteria? No. Patient's initial sepsis screen is negative. Does the patient have a suspected source of infection? No. Patient's initial sepsis screen is negative. Risk Assessment: Do you want to hurt yourself or someone else? Patient reports no desire to harm self or others. Onset of symptoms was October 22, 2022. 09:04 Method Of Arrival: Ambulatory ph 09:04 Acuity: SASHA 4 ph Historical: - Allergies: 09:06 Codeine (Upset stomach); ph 09:06 Demerol (Upset stomach); ph 09:06 Morphine ((sedation and nausea)); ph 09:06 [place] (Upset stomach); ph - PMHx: 09:06 Hyperlipidemia; Tachycardia; Diabetes mellitus; ph - Immunization history:: Adult Immunizations unknown. - Social history:: Smoking status: Patient/guardian denies using tobacco, but has a distant history of tobacco abuse. Screenin:08 [facility] ED Fall Risk Assessment (Adult) History of falling in the last 3 months, kc6 including since admission Yes- single mechanical fall (1 pt) Confusion or Disorientation No (0 pts) Intoxicated or Sedated No (0 pts) Impaired Gait No (0 pts) Mobility Assist Device Used Yes (1 pt) Altered Elimination No (0 pt) Score/Fall Risk Level 0 - 2 = Low Risk Oriented to surroundings, Maintained a safe environment, Educated pt \T\ family on fall prevention, incl call for assistance when getting out of bed, Assessed \T\ reinforced patient's understanding of fall precautions, Hourly rounding (assess needs \T\ fall precautionary measures) done, Used ambulatory aids as needed (educated on \T\ assisted with). Abuse screen: Denies threats or abuse. Denies injuries from another. Nutritional screening: No deficits noted. Tuberculosis screening: No symptoms or risk factors identified. Assessment: 09:07 General: Appears in no apparent distress. comfortable, Behavior is calm, cooperative, kc6 appropriate for age. Pain: Complains of pain in left wrist Pain does not radiate. Pain currently is 10 out of 10 on a pain scale. Quality of pain is described as aching, Pain began suddenly, Is continuous, Alleviated by nothing. Aggravated by increased activity, Noted to be resistant to movement, Also complains of no other associated symptoms. Neuro: Phillips Agitation-Sedation Scale (RASS): 0 - Alert and Calm Level of Consciousness is awake, alert, obeys commands, Oriented to person, place, time, situation, Appropriate for age. Cardiovascular: Capillary refill < 3 seconds. Respiratory: Airway is patent Trachea midline Respiratory effort is even, unlabored, Respiratory pattern is regular, symmetrical. GI: No signs and/or symptoms were reported involving the gastrointestinal system. : No signs and/or symptoms were reported regarding the genitourinary system. EENT: No signs and/or symptoms were reported regarding the EENT system. Derm: No signs and/or symptoms reported regarding the dermatologic system. Skin is intact, Skin is pink, warm \T\ dry. Musculoskeletal: Circulation, motion, and sensation intact. Capillary refill < 3 seconds, Range of motion: intact in all extremities, Reports pain in left wrist. 10:07 Reassessment: Patient appears in no apparent distress at this time. No changes from kc6 previously documented assessment. Patient and/or family updated on plan of care and expected duration. Pain level reassessed. Patient is alert, oriented x 3, equal unlabored respirations, skin warm/dry/pink. Vital Signs: 09:04 BP 103 / 55; Pulse 55; Resp 18; Temp 97.6; Pulse Ox 100% on R/A; Weight 120.2 kg; ph Height 5 ft. 11 in. ; 10:44 BP 118 / 55; Pulse 56; Resp 19 S; Pulse Ox 96% on R/A; kc6 09:04 Body Mass Index 36.96 (120.20 kg, 180.34 cm) ph ED Course: 08:46 Patient arrived in ED. jj6 08:48 Jose Christensen PA is PHCP. [facility] 08:48 Marciano Solano MD is Attending Physician. [facility] 08:57 Zayra Pino, RN is Primary Nurse. kc6 09:06 Triage completed. ph 09:07 Arm band placed on Patient placed in an exam room, on a stretcher. ph 09:09 Patient has correct armband on for positive identification. Bed in low position. Call kc6 light in reach. Side rails up X 1. Adult w/ patient. 09:30 Wrist Left (3 View) XRAY In Process Unspecified. EDMS 10:44 Solomon Best MD is Referral Physician. [facility] 10:53 No provider procedures requiring assistance completed. Patient did not have IV access kc6 during this emergency room visit. Administered Medications: No medications were administered Medication: 10:53 VIS not applicable for this client. kc6 Outcome: 10:45 Discharge ordered by MD. [facility] 10:53 Discharged to home ambulatory, with family. kc6 10:53 Condition: stable 10:53 Discharge instructions given to patient, Instructed on discharge instructions, follow up and referral plans. medication usage, Demonstrated understanding of instructions, follow-up care, medications, splint care, Prescriptions given X 1. 10:53 Patient left the ED. kc6 Signatures: Dispatcher [employer] EDMS Jose Christensen PA PA Fide Ramos, RN RN Nancy Whitfield j6 Zayra Pino, RN RN michael
== END 2022-10-22 10:53 | disposition home or self-care (01) ==
LOC: ER 08:42
PROC: 2W3DX1Z Immobilization of Left Lower Arm using Splint (ICD-10-PCS; principal; 2022-10-22)
DX: S52.502A Unspecified fracture of the lower end of left radius, initial encounter for closed fracture (principal); Z88.5 Allergy status to narcotic agent
CPT/HCPCS: 99283